=== PATIENT | female | born 1935 | race Caucasian/White ===

== ENCOUNTER 2017-09-11 17:04 | Inpatient (IN) | payer MEDICARE ==
[2017-09-11] MEDS ORDERED: Dextrose 5% in Water 1,000 ML IV PRN (20:41)
[2017-09-11] MEDS ORDERED: Ondansetron ODT 4 MG TAB PO PRN (20:41)
[2017-09-11] MEDS ORDERED: Bisacodyl 5 MG TAB PO PRN (20:41)
[2017-09-11] MEDS ORDERED: Acetaminophen 650 MG Suppository PR PRN (20:41)
[2017-09-11] MEDS ORDERED: Ondansetron PF 4 MG/2 ML Vial IVP PRN (20:41)
[2017-09-11] MEDS ORDERED: Guaifenesin DM 100-10/5 ML UDCUP PO PRN (20:41)
[2017-09-11] MEDS ORDERED: Acetaminophen 325 MG TAB PO PRN (20:41)
[2017-09-11] MEDS ORDERED: Dextrose 50% Abboject 50 ML SYRINGE SLOW IVP PRN (20:41)
[2017-09-11] MEDS: Docusate 100 MG CAP PO SCH (22:13)
[2017-09-11] MEDS: Famotidine 20 MG TAB PO SCH (22:13)
[2017-09-12 01:13] VITALS: BMI 28.1
[2017-09-12] MEDS: Levothyroxine Sodium 50 MCG TAB PO SCH (05:24)
[2017-09-12] MEDS: Furosemide 40 MG/4 ML VIAL SLOW IVP SCH ×2 (05:24→15:12)
[2017-09-12 06:10] LABS: Anion Gap 12 mmol/L (10-20); BUN (Urea Nitrogen) 75 mg/dL (9.8-20.1); Calc. Creatinine Clearance 19 mL/min (70-130); Calcium 9.5 mg/dL (7.8-10.44); Carbon Dioxide 26 mmol/L (23-31); Chloride 106 mmol/L (98-107); Estimated GFR-MDRD 16; Glucose 206 mg/dL (83-110); Potassium 4.8 mmol/L (3.5-5.1); Sodium 139 mmol/L (136-145)
[2017-09-12 06:30] LABS: #Eosinphils 0.1 thou/uL (0.0-0.7); #Lymphocytes 1.3 thou/uL (1.20-3.40); #Monocytes 0.5 thou/uL (0.11-0.59); #Neutrophils 3.1 thou/uL (1.40-6.50); %Basophils 0.5 % (0.0-1.0); %Eosinophils 2.2 % (0.0-10.0); %Lymphocytes 26.3 % (21.0-51.0); %Monocytes 10.4 % (0.0-10.0); %Neutrophils 60.6 % (42.0-75.0); Anisocytosis SLIGHT = 6-15 cells (100X) (0-5/hpf); Hemoglobin 8.3 g/dL (12.0-16.0); Hypochromia SLIGHT = 6-15 cells (100X) (0-5/hpf); MDiff Complete? YES; Mean Corpuscular HGB CONC 28.3 g/dL (32.0-36.0); Mean Corpuscular Hemoglobin 22.7 pg (27.0-31.0); Mean Corpuscular Volume 80.3 fl (81.0-99.0); Mean Platelet Volume 8.7 fL (7.4-10.4); Microcytosis SLIGHT = 6-15 cells (100X) (0-5/hpf); Platelet Count 232 thou/uL (130-400); RBC Distribution Width 18.6 % (11.5-14.5); Red Blood Cell (RBC) Count 3.66 mill/uL (4.20-5.40); White Blood Cell (WBC) Count 5.1 thou/uL (4.8-10.8)
--- NOTE | 2017-09-12 08:00 | HP ---
PRIMARY CARE PHYSICIAN: Maryam Hidalgo M.D. CHIEF COMPLAINT: Shortness of breath and weakness. HISTORY OF PRESENT ILLNESS: This is an 81-year-old white female with a known history of diabetes, hypertension and atrial fibrillation, but no known history of congestive heart failure. She reports that over the last 3 weeks, she has been having increasing swelling in her lower extremities. She has had this previously, but kind of come and gone and now it has been persistent since then and over the last 2 or 3 days, she has been getting a little more short of breath with activity and feeling a little weak, then this morning after she got up and started moving around, she had significant difficulty getting her clothes on due to worsening of her swelling and felt very short of breath and very weak. She managed to get to her car with her walker and her helped her into it. She was supposed to go get some lab work, but after she got into the care, she determined she could not continue like that and so they went to the emergency room in [place]. There, she was found to have CHF on chest x-ray as well as a very elevated brain natriuretic peptide and elevation in her creatinine. She was given some Lasix without much urine output and then transferred here. PAST MEDICAL HISTORY: 1. Diabetes mellitus type 2 on oral hypoglycemics only. 2. Hypertension. 3. Previous atrial fibrillation. 4. Hyperlipidemia. 5. Anemia of uncertain etiology. 6. Hypothyroidism. PAST SURGICAL HISTORY: 1. Right ankle surgery with plates. 2. Distal femur fracture with ORIF. 3. Bilateral cataract surgery. 4. Blepharitis surgery. 5. Left humeral fracture repair. 6. Skin cancer removal from her scalp. SOCIAL HISTORY: Patient has been for greater than 60 years, 2 children. 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 She never smoked. No alcohol or illicit drug use. FAMILY HISTORY: Father of a myocardial infarction at 84 and had asthma. Mother at 84 of Alzheimer's. She has 1 brother with rheumatoid arthritis. Sister with sleep apnea and asthma. Mom with an MT and coronary artery bypass grafting and with diabetes. ALLERGIES: No known drug allergies. CURRENT MEDICATIONS: 1. Aspirin 81 mg daily. 2. Atenolol 100 mg daily. 3. Amlodipine 5 mg daily. 4. Lisinopril 10 mg daily. 5. Chlorthalidone 25 mg daily. 6. Hydrochlorothiazide 12.5 mg daily. 7. Actos 45 mg daily. 8. Invokana 100 mg daily. 9. Pravastatin 20 mg at night. 10. Levothyroxine 50 mcg daily. 11. MiraLax as needed. 12. Vitamin D3 of 1000 units daily. REVIEW OF SYSTEMS: Constitutional: No fevers, no chills, just generalized weakness. Eyes: No double vision or blurred vision. ENT: No congestion, drainage or sore throat. Cardiovascular: No chest pain, no palpitations or racing heart. She has had the edema as above. Pulmonary: No coughing, dyspnea on exertion, but not at rest or with lying down. She was lying flat in the bed and breathing comfortably in the emergency room when I saw her. Gastrointestinal: No abdominal pain, no nausea or vomiting, no diarrhea or constipation. Genitourinary: No dysuria or hematuria. Musculoskeletal: No muscle aches, joint pains. Skin: She has some mild bruises that are improving after a fall 3 weeks ago. No other skin rashes or lesions. Neurologic: No numbness, tingling or focal weakness. PHYSICAL EXAMINATION: VITAL SIGNS: Blood pressure 112/45, pulse 49, respirations 16, temperature 96.1 , O2 sat 99% on room air. GENERAL: This is a well-developed, well-nourished elderly female in no apparent distress, on oxygen, lying flat in the bed. HEENT: Pupils equal, round, and reactive to light. Oropharynx clear without lesions, erythema or exudate. NECK: Supple, no lymphadenopathy, no thyroid nodules or enlargement. She does have some JVD. HEART: Irregularly irregular rhythm, bradycardic. No murmurs. LUNGS: Decent air movement throughout. No obvious crackles. ABDOMEN: Soft, nontender to palpation, normoactive bowel sounds, no hepatosplenomegaly or other masses. EXTREMITIES: No clubbing or cyanosis. She does have a 3+ to 4+ pitting edema in bilateral lower extremities going up into her thighs. SKIN: No rashes or other lesions besides some mild bruising that is healing on her right leg and left arm and a scabbed eschar on her left hand. NEUROLOGIC: Deep tendon reflexes 2+ in all extremities. Strength 5/5 in all extremities. No facial droop. No lateralizing signs. LABORATORY DATA: White blood cell count normal, hemoglobin 8.7 which is about consistent with her hemoglobin from last year. Platelet count normal. Coagulation profile grossly normal. Complete metabolic panel notable for BUN of 72, creatinine of 2.72 with previous creatinines in the 1.3 to 1.6 range. Glucose 183 and albumin is low at 3.1 and the remainder of the complete metabolic panel was normal. BNP is elevated at 939. Cardiac marker set negative x1. Hemoglobin A1c 7.2. TSH is 10.9. Urinalysis with a lot of protein, some glucose and 1+ bacteria and no white blood cells or leukocyte esterase. Chest x-ray: I did review the chest x-ray done in the emergency room along with the radiologist's report. There is evidence of cardiomegaly with bilateral interstitial markings consistent with decompensated CHF. There is also some pleural fluid in the right base concerning for pleural effusion versus pneumonia. X-ray of the left hand shows some soft tissue edema. No osseous abnormalities. Patient's rhythm strip in the emergency room showed atrial fibrillation with bradycardia, no significant ST changes noted. ASSESSMENT AND PLAN: 1. Acute congestive heart failure. We will admit patient and then try diuresis with Lasix as it difficult with her increased creatinine. We will also get an echocardiogram and continue her aspirin. We will hold her beta blockers for now as well as her amlodipine due to her edema and we will consult Dr. Evans, Cardiology in the morning. 2. Hypertension. We will try and diurese patient for control of her blood pressure, but we will have to hold her beta travis and amlodipine for now due to her bradycardia and decompensated congestive failure. 3. Diabetes mellitus type 2. We will give an insulin sliding scale at this time. We will hold her oral hypoglycemics, especially the Actos, which can exacerbate congestive heart failure. 4. Hypothyroidism. Resume patient's levothyroxine. 5. Gastrointestinal prophylaxis, put the patient on Pepcid twice a day. 6. Deep venous thrombosis prophylaxis, put patient on low dose Lovenox. 7. Acute on chronic renal failure. We will hold ALEXANDER inhibitor and will consult Dr. Harrison, Nephrology. 8. Code status. I did discuss the patient. She is a FULL CODE. Should she be incapacitated, her would be her medical decision maker, his name is Sree Orellana. [facility]
[2017-09-12] MEDS ORDERED: Albumin 25% 25 GM/100 ML BOT IVPB ONE (09:05)
[2017-09-12] MEDS: Enoxaparin Sodium 30 MG/0.3 ML SYRINGE SC SCH (09:17)
[2017-09-12] MEDS: Docusate 100 MG CAP PO SCH ×2 (09:17→22:08)
[2017-09-12] MEDS: Albumin 25% 25 GM/100 ML BOT IVPB SCH ×3 (09:18→22:16)
--- NOTE | 2017-09-12 10:41 | CON ---
DATE OF CONSULTATION: 09/12/2017 SERVICE: Renal Medicine. HISTORY OF PRESENT ILLNESS: Ms. Orellana is an 81-year-old white female who was admitted for shortness of breath. She was found to be in CHF. She was started on IV Lasix. Her breathing this morning is much improved. We are now being consulted for her acute kidney injury on top of her chronic renal f ailure. Patient is noted to be on diuretics. She has been making some urine output. REVIEW OF SYSTEMS: Positive for shortness of breath. No chest pain, no nausea, no vomiting. Decrea sed energy level. Appetite decreased. No abdominal pain. Positive for leg edema. No fever or chil ls, no joint pains, no new skin rash, no syncopal episode, no sore throat, no productive cough, no di plopia. MEDICATIONS: She is currently on aspirin 81 mg every day, Dulcolax 10 mg p.r.n., Colace 100 mg p.o. b.i.d., Lovenox 30 mg subcu every day, Pepcid 20 mg q.24 hours, Furosemide 40 mg IV q.12 hours, Humal og sliding scale, Synthroid 50 mcg every day, Zofran 4 mg IV q.4 hours, status post ceftriaxone. PAST MEDICAL HISTORY: Includes, 1. Hypothyroidism. 2. History of CHF. 3. Type 2 diabetes mellitus. 4. Chronic renal failure secondary to presumed diabetic nephropathy. 5. Status post atrial fibrillation. 6. Hypertension. 7. Chronic anemia. 8. Hyperlipidemia. PAST SURGICAL HISTORY: 1. Status post ORIF of distal femoral. 2. Status post right ankle surgery. 3. Status post bilateral cataract surgery. 4. Status post eye surgery - for blepharitis. 5. Status post excision of skin cancer from the scalp. SOCIAL HISTORY: Patient lives in [place], , 2 children. 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 No smoking, no alcohol intake, no IV drug abuse. Status post blood transfusion. Education, high school. FAMILY HISTORY: No family history of ESRD. ALLERGIES: None. TRAUMA: Status post right femoral fracture, right ankle fracture. IMMUNIZATIONS: Up to date. HOSPITALIZATIONS: Please see past medical history. PHYSICAL EXAMINATION: VITAL SIGNS: Blood pressure is 102/45, heart rate 50, respiratory 16, temperature 97.5, pulse ox 95% . GENERAL: Awake, alert, comfortable, obese, not in distress. SKIN: Adequate turgor. HEENT: She has slightly pale conjunctivae, anicteric sclerae. NECK: No neck mass, no carotid bruits, no JVD. CHEST: No deformities. LUNGS: Clear breath sounds, no wheezing, no crackles. HEART: Normal sinus rhythm. No murmur, no gallops or rubs. ABDOMEN: Globular, soft, nontender, no masses. EXTREMITIES: Positive for edema. NEUROLOGIC: Awake, oriented to 3 spheres. Moving all extremities. No tremors, no asterixis, no kirill aram. X-RAY FINDINGS: Chest x-ray of 09/11/2017 showed CHF. LABORATORY DATA: Of 09/12/2017, white count 5.1, hemoglobin 8.3. Sodium 139, potassium 4.8, chlorid e 106, carbon dioxide 26, BUN 75, creatinine 2.81, glucose 206, calcium is 9.5. Further review of her serum creatinine shows the following, on 09/11/2017, creatinine was 2.7 and on 05/02/2017, creatinine was 1.37. Urinalysis shows specific gravity of 1.020, protein greater than 300. She has 0-[address] ASSESSMENT AND PLAN: 1. Acute kidney injury - consider hemodynamically mediated renal dysfunction. Please note, this pat ient was taking an ALEXANDER inhibitor and diuretics. This may have aggravated the renal dysfunction. She is also in congestive heart failure, which also may have a superimposed worsening of her prerenal az otemia. For the moment, agree with current management and IV Lasix. Hold off her hydrochlorothiazid e, chlorthalidone, Invokana as well as the lisinopril. I would probably also start salt poor albumin 25 grams IV q.6 hours with this patient for 3 days. There is no indication for any dialytic interve ntion. 2. Chronic renal failure, most likely from diabetic nephropathy. Please note that her acute kidney injury is most likely hemodynamically mediated renal dysfunction. 3. Congestive heart failure. We will continue IV Lasix. As previously mentioned, salt poor albumin will be started. ADDENDUM: Anemia. If needed, we can consider starting Epogen.
[2017-09-12] MEDS: HumaLOG 300 UNITS/3 ML VIAL SC PRN ×2 (12:08→18:05)
--- NOTE | 2017-09-12 14:04 | PDOC.PN ---
- Subjective Encounter Start Date: 09/12/17 Encounter Start Time: 11:00 Patient is seen today, She has massive pedal edema, with Multiple Falls according to Family. - Objective Resuscitation Status: Resuscitation Status FULL:Full Resuscitation MAR Reviewed: Yes Vital Signs & Weight: Vital Signs (12 hours) Temp Pulse Resp BP Pulse Ox 09/12/17 08:00 97.5 F L 50 L 18 97/50 L 95 09/12/17 04:37 97.5 F L 50 L 16 102/45 L 95 Weight Weight 169 lb 8 oz I&O: 09/11/17 09/12/17 09/13/17 06:59 06:59 06:59 Intake Total 200 240 Output Total 200 Balance 0 240 Result Diagrams: 09/12/17 05:40 09/12/17 05:40 Additional Labs: Accuchecks 09/12/17 09/12/17 09/11/17 10:58 06:24 20:56 POC Glucose 254 H 208 H 174 H Radiology Reviewed by me: Yes Phys Exam - Physical Examination HEENT: PERRLA, moist MMs Neck: no nodes, no JVD Respiratory: wheezing present Cardiovascular: RRR, no significant murmur Gastrointestinal: soft, non-tender Musculoskeletal: edema present Neurological: non-focal, normal sensation Lymphatic: no nodes Dx/Plan (1) Acute diastolic CHF (congestive heart failure) Code(s): I50.31 - ACUTE DIASTOLIC (CONGESTIVE) HEART FAILURE Status: Acute Comment: Pt was on lasix at home, Worseing Renal fucntions, kev pedal edema,. will hold lasix, Cardiology consulted. Will cotninue with ,Hold ACEI, BB (2) Bradycardia Code(s): R00.1 - BRADYCARDIA, UNSPECIFIED Status: Acute Comment: Cardiology to Evalauted, Will hold BB. (3) Hypertension Code(s): I10 - ESSENTIAL (PRIMARY) HYPERTENSION Status: Acute Comment: Continue with Hydralazine prn (4) DM type 2 (diabetes mellitus, type 2) Status: Acute Comment: Well controlled. SSI. (5) Cardiorenal syndrome with renal failure Code(s): I13.10 - HYP HRT & CHR KDNY DIS W/O HRT FAIL, W STG 1-4/UNSP CHR KDNY; N19 - UNSPECIFIED KIDNEY FAILURE Status: Acute Comment: nephrology is consulted. Will follow recommedations. (6) Morbid obesity Code(s): E66.01 - MORBID (SEVERE) OBESITY DUE TO EXCESS CALORIES Status: Acute (7) Multiple falls Code(s): R29.6 - REPEATED FALLS Status: Acute Comment: PT/OT, evalaution, likely from bradycardia. - Plan cont current plan of care, plan discussed w/ family, PT/OT, hospice social worker, respiratory therapy, incentive spirometry, out of bed/ambulate, DVT proph w/ lovenox * . - Discharge Day Encounter end time: 11:35 Review of Systems - Review of Systems Eyes: negative: Pain, Vision Change, Conjunctivae Inflammation, Eyelid Inflammation, Redness, Other Respiratory: Cough, Shortness of Breath, SOB with Excertion, Wheezing Cardiovascular: orthopnea, paroxysmal nocturnal dyspnea, edema. negative: chest pain, palpitations, light headedness, other Gastrointestinal: negative: Nausea, Vomiting, Abdominal Pain, Diarrhea, Constipation, Melena, Hematochezia, Other Musculoskeletal: negative: Neck Pain, Shoulder Pain, Arm Pain, Back Pain, Hand Pain, Leg Pain, Foot Pain, Other Skin: Bruising. negative: Rash, Lesions, Haseeb, Other - Medications/Allergies Allergies/Adverse Reactions: Allergies Allergy/AdvReac Type Severity Reaction Status Date / Time No Known Drug Allergies Allergy Verified 09/12/17 07:30 Medications: Current Medications Acetaminophen (Tylenol) 650 mg PO Q4H PRN PRN Reason: Headache/Fever or Pain Acetaminophen (Tylenol) 650 mg MO Q4H PRN PRN Reason: Headache/Fever or Pain Albumin Human (Albumin 25%) 25 gm IVPB Q6H [facility] Stop: 09/15/17 10:01 Last Admin: 09/12/17 09:18 Dose: 25 gm Aspirin (Aspirin Chewable) 81 mg PO DAILY [facility] Last Admin: 09/12/17 09:17 Dose: 81 mg Bisacodyl (Dulcolax) 10 mg PO DAILYPRN PRN PRN Reason: Constipation Dextrose/Water (Dextrose 50%) 25 gm SLOW IVP PRN PRN PRN Reason: Hypoglycemia Docusate Sodium (Colace) 100 mg PO BID [facility] Last Admin: 09/12/17 09:17 Dose: 100 mg Enoxaparin Sodium (Lovenox) 30 mg SC 0900 [facility] Last Admin: 09/12/17 09:17 Dose: 30 mg Famotidine (Pepcid) 20 mg PO Q24HR [facility] Last Admin: 09/11/17 22:13 Dose: 20 mg Furosemide (Lasix) 40 mg SLOW IVP 0600,1400 [facility] Last Admin: 09/12/17 05:24 Dose: 40 mg Glucagon (Glucagon) 1 mg IM PRN PRN PRN Reason: Hypoglycemia Guaifenesin/Dextromethorphan (Robitussin Dm) 15 ml PO Q4H PRN PRN Reason: Cough Dextrose/Water (D5w) 1,000 mls @ 0 mls/hr IV .Q0M PRN; As Directed PRN Reason: Hypoglycemia Insulin Human Lispro (Humalog) 0 units SC .MILD SLIDING SCALE PRN PRN Reason: Mild Correctional Scale Last Admin: 09/12/17 12:08 Dose: 4 unit Insulin Human Lispro (Humalog) 0 units SC .BEDTIME SLIDING SC PRN PRN Reason: Bedtime Correctional Scale Levothyroxine Sodium (Synthroid) 50 mcg PO 0600 [facility] Last Admin: 09/12/17 05:24 Dose: 50 mcg Ondansetron HCl (Zofran Odt) 4 mg PO Q6H PRN PRN Reason: Nausea/Vomiting Ondansetron HCl (Zofran) 4 mg IVP Q6H PRN PRN Reason: Nausea/Vomiting Sodium Chloride (Flush - Normal Saline) 10 ml IVF Q12HR GORDY Sodium Chloride (Flush - Normal Saline) 10 ml IVF PRN PRN PRN Reason: Saline Flush
--- NOTE | 2017-09-12 15:43 | CON ---
DATE OF CONSULTATION: 09/12/2017 REASON FOR CONSULTATION: Shortness of breath and lower extremity edema. HISTORY OF PRESENT ILLNESS: Ms. Orellana is an 81-year-old woman with no previous cardiac history. We recently presented with shortness of breath. She states that it has slowly occurred over the last s everal weeks. No chest pain or pressure noted. She has developed lower extremity edema in addition to PND. She presented to emergency room with elevated creatinine and decrease in her hemoglobin. Ag ain, no chest pain or pressure noted. No diaphoresis, nausea or vomiting present. PAST MEDICAL HISTORY: Chronic kidney disease, atrial fibrillation, anemia, hypertension, hyperlipide edvin and hypothyroidism. PAST SURGICAL HISTORY: Right ankle surgery, cataract surgery. SOCIAL HISTORY: No current tobacco or alcohol use. She has two children. She is currently . REVIEW OF SYSTEMS: Ten point review of systems is reviewed as above, otherwise negative. PHYSICAL EXAMINATION: GENERAL: Patient is a pleasant female who is in no acute distress. The patient appears her stated a ge. VITAL SIGNS: Blood pressure 102/45, pulse 50, temperature 97.5. NEUROLOGIC: The patient is alert and oriented times 3 with no focal neurologic deficits. HEENT: Sclerae without icterus. Mouth has moist mucous membranes with normal pallor. NECK: No JVD. Carotid upstroke brisk. No bruits bilaterally. LUNGS: Clear to auscultation with unlabored respirations. BACK: No scoliosis or kyphosis. CARDIAC: Regular rate and rhythm with normal S1 and S2. No S3 or S4 noted. No significant rubs, mu rmurs, thrills, or gallops noted throughout the precordium. PMI is not displaced. There is no carrol ternal heave. ABDOMEN: Soft, nontender, nondistended. No peritoneal signs present. No hepatosplenomegaly. No ab normal striae. EXTREMITIES: 2+ femoral and 2+ dorsalis pedis pulses. No cyanosis, clubbing, or edema. SKIN: No gross abnormalities. PERTINENT LABORATORY DATA AND IMAGING DATA: 1. Hemoglobin 8.3, creatinine 2.81, BNP of 939, albumin 3.1. 2. Telemetry monitoring showed short run of supraventricular tachycardia. 3. EKG not currently in chart. IMPRESSION: 1. Congestive heart failure of unknown etiology. 2. Chronic kidney disease. 3. Anemia. RECOMMENDATIONS: Ms. Orellana's symptoms can certainly be due to diastolic versus systolic dysfunction . Echo is currently pending. I would treat with Lasix. She is also receiving albumin due to an alb umin of 3.1 and likely proteinuria. We will reassess in a.m. If LVEF is normal, would continue curr ent course. If LVEF is decreased, may consider noninvasive stress study to her kidney issue versus a ngiography.
[2017-09-12] MEDS: Famotidine 20 MG TAB PO SCH (22:08)
[2017-09-13] MEDS: Furosemide 40 MG/4 ML VIAL SLOW IVP SCH ×2 (02:37→14:30)
[2017-09-13] MEDS: Albumin 25% 25 GM/100 ML BOT IVPB SCH ×4 (04:59→21:51)
[2017-09-13] MEDS: Levothyroxine Sodium 50 MCG TAB PO SCH (05:04)
[2017-09-13 05:22] LABS: #Basophils 0.1 thou/uL (0.0-0.2); #Eosinphils 0.2 thou/uL (0.0-0.7); #Lymphocytes 1.5 thou/uL (1.20-3.40); #Monocytes 0.7 thou/uL (0.11-0.59); #Neutrophils 3.5 thou/uL (1.40-6.50); %Basophils 1.3 % (0.0-1.0); %Eosinophils 2.9 % (0.0-10.0); %Lymphocytes 25.2 % (21.0-51.0); %Monocytes 12.3 % (0.0-10.0); %Neutrophils 58.4 % (42.0-75.0); Hemoglobin 7.6 g/dL (12.0-16.0); Mean Corpuscular HGB CONC 28.6 g/dL (32.0-36.0); Mean Corpuscular Hemoglobin 23.1 pg (27.0-31.0); Mean Corpuscular Volume 80.8 fl (81.0-99.0); Mean Platelet Volume 8.6 fL (7.4-10.4); Platelet Count 213 thou/uL (130-400); RBC Distribution Width 18.4 % (11.5-14.5); Red Blood Cell (RBC) Count 3.29 mill/uL (4.20-5.40); White Blood Cell (WBC) Count 5.9 thou/uL (4.8-10.8)
[2017-09-13 05:26] LABS: Anion Gap 9 mmol/L (10-20); BUN (Urea Nitrogen) 78 mg/dL (9.8-20.1); Calc. Creatinine Clearance 18 mL/min (70-130); Calcium 9.6 mg/dL (7.8-10.44); Carbon Dioxide 29 mmol/L (23-31); Chloride 106 mmol/L (98-107); Estimated GFR-MDRD 15; Glucose 149 mg/dL (83-110); Potassium 4.9 mmol/L (3.5-5.1); Sodium 139 mmol/L (136-145)
--- NOTE | 2017-09-13 08:49 | PRG ---
DATE OF SERVICE: 09/13/2017 SUBJECTIVE: Ms. Orellana is an 81-year-old white female who was admitted for shortness of breath. It was felt that she may have CHF. She has been started on Lasix. In addition, we started her on salt poor albumin. However, renal function continues to remain unimproved. We will be reviewing a urinal ysis today to rule out acute tubular necrosis with this patient. Currently, her breathing is much im proved. Cardiology is also evaluating this patient. A cardiac echo is pending. OBJECTIVE: VITAL SIGNS: Blood pressure is 108/50, heart rate 51, respiratory rate 12, temperature 97.5, pulse o x 97%. GENERAL: Noted to be awake, supine, comfortable, not in overt distress. SKIN: Adequate turgor. HEENT: Slightly pale conjunctivae, anicteric sclerae. NECK: No neck mass, no carotid bruits, no JVD. CHEST: No deformities. LUNGS: Decreased breath sounds. HEART: Normal sinus rhythm. No murmur, no gallops, no rubs. ABDOMEN: Globular, soft, nontender, no masses. EXTREMITIES: Positive for edema. MEDICATIONS: 09/13/2017 - Reviewed. LABORATORY: 09/13/2017 - White count 5.9, hemoglobin 7.6. Sodium 139, potassium 4.9, chloride 106, carbon dioxide 29, BUN 78, creatinine 2.01, glucose is 149, calcium 9.6. ASSESSMENT AND PLAN: 1. Acute kidney injury over her chronic renal failure - consideration for a superimposed hemodynamic ally mediated renal dysfunction. Continuing gentle diuresis. In addition, she is receiving salt poo r albumin. My bias is to decrease her Lasix from 40 IV q.12 to 20 mg IV q.12h. Awaiting cardiac echo . Cardiology is following. 2. Shortness of breath - presumptive congestive heart failure - on IV diuretics. 3. Anemia. Start Epogen and iron supplementation. We will be rechecking a base met and CBC in a.m.
[2017-09-13] MEDS: Docusate 100 MG CAP PO SCH ×2 (09:28→21:36)
[2017-09-13] MEDS: Enoxaparin Sodium 30 MG/0.3 ML SYRINGE SC SCH (09:31)
[2017-09-13] MEDS: Epoetin (ESRD) 20,000 UNITS/ML SC SCH (14:36)
--- NOTE | 2017-09-13 14:41 | PDOC.PN ---
- Subjective Encounter Start Date: 09/13/17 Encounter Start Time: 14:39 Ms. Orellana says she is breathing a bit better. She denies chest pain . - Objective Resuscitation Status: Resuscitation Status FULL:Full Resuscitation MAR Reviewed: Yes Vital Signs & Weight: Vital Signs (12 hours) Temp Pulse Resp BP BP Pulse Ox 09/13/17 09:46 104/61 09/13/17 07:40 97.5 F L 51 L 12 108/50 L 97 09/13/17 04:00 97.5 F L 50 L 18 100/47 L 99 Weight Weight 174 lb 8 oz I&O: 09/12/17 09/13/17 09/14/17 06:59 06:59 06:59 Intake Total 200 1400 Output Total 200 375 Balance 0 1025 Result Diagrams: 09/13/17 04:44 09/13/17 04:44 Additional Labs: Accuchecks 09/13/17 09/13/17 09/12/17 10:50 06:24 20:40 POC Glucose 145 H 151 H 146 H 09/12/17 15:58 POC Glucose 176 H Phys Exam - Physical Examination HEENT: PERRLA Respiratory: no wheezing, no rales, no rhonchi, clear to auscultation bilateral Cardiovascular: no significant murmur, no rub, irregular heart rate is slow, and irregular Gastrointestinal: soft, non-tender, no distention, positive bowel sounds Musculoskeletal: edema present 2+ pitting edema Dx/Plan (1) Acute diastolic CHF (congestive heart failure) Code(s): I50.31 - ACUTE DIASTOLIC (CONGESTIVE) HEART FAILURE Status: Acute Comment: Pt was on lasix at home, Worseing Renal fucntions, kev pedal edema,. will hold lasix, Cardiology consulted. Will cotninue with ,Hold ACEI, BB (2) Acute kidney injury superimposed on chronic kidney disease Code(s): N17.9 - ACUTE KIDNEY FAILURE, UNSPECIFIED; N18.9 - CHRONIC KIDNEY DISEASE, UNSPECIFIED Status: Acute (3) Bradycardia Code(s): R00.1 - BRADYCARDIA, UNSPECIFIED Status: Acute Comment: Cardiology to Evalauted, Will hold BB. (4) DM type 2 (diabetes mellitus, type 2) Status: Acute Comment: Well controlled. SSI. (5) Hypertension Code(s): I10 - ESSENTIAL (PRIMARY) HYPERTENSION Status: Acute Comment: Continue with Hydralazine prn (6) Morbid obesity Code(s): E66.01 - MORBID (SEVERE) OBESITY DUE TO EXCESS CALORIES Status: Acute (7) Atrial fibrillation Code(s): I48.91 - UNSPECIFIED ATRIAL FIBRILLATION Status: Acute Qualifiers: Atrial fibrillation type: permanent Qualified Code(s): I48.2 - Chronic atrial fibrillation - Plan * Acute on chronic diastolic heart failure- She has been a bit refractory to Lasix- continue Albumin as well. * Acute renal failure- likely as a result of Diureses- Nephrology managing * DM- blood glucose is stable * HTN- blood pressure is low normal * Permanent AFIB- she has a slow ventricular response, but asymptomatic- will defer to Cardiology
[2017-09-13 15:17] LABS: Bilirubin Negative (Negative); Blood, Urine Large (Negative); Clarity TURBID (Clear); Glucose, Urine (Dipstick) Negative (Negative); Leukocyte Moderate (Negative); Nitrite Negative (Negative); Protein, Urine (Dipstick) 300 mg/dL (Neg-Trace); Specific Gravity, Urine 1.015 (1.002-1.036); Urobilinogen 0.2 mg/dL (0.2-1.0)
[2017-09-13 15:18] LABS: Bacteria/HPF None Seen HPF (None Seen)
[2017-09-13 15:28] LABS: Pathc Cast-AUWi Flag 29.25 (0-2.49); Yeast-AUWi Flag 418.8 (0-25.0)
[2017-09-13 15:38] LABS: Hyaline Casts/LPF 0-3 HYALINE CAST LPF (0-3 Hyaline); Other Casts/LPF None Seen LPF (0-3 Hyaline); RBC/HPF GREATER THAN 50-TNTC HPF (0-3); Transitional Epithelial 0-3 HPF (0-3)
[2017-09-13 15:39] LABS: Yeast-All Forms None Seen HPF (None Seen)
[2017-09-13] MEDS: Ferrous Sulfate 325 MG TAB PO SCH (16:27)
--- NOTE | 2017-09-13 16:42 | PRG ---
DATE OF SERVICE: 09/13/2017 SUBJECTIVE: Ms. Orellana feels better today. She has less shortness of breath. Recent echo did sugge st LVEF normal. She did have a grade I diastolic dysfunction. There is mild LVH present. OBJECTIVE: VITAL SIGNS: Blood pressure 118/58, pulse 53, temperature 97.3. LUNGS: Mild crackles noted on right versus left. CARDIAC: Irregular rate and rhythm. ABDOMEN: Soft, nontender, nondistended. EXTREMITIES: No edema. PERTINENT LABORATORY DATA: Hemoglobin 10.6, white blood cell count 5.9, platelet count 213, creatini ne has worsened and gone from 2.8 to 3.0. IMPRESSION: 1. Shortness of breath. 2. Chronic atrial fibrillation. RECOMMENDATIONS: At this point, we will hold anticoagulation therapy due to persistent anemia. Her anemia may be due to chronic kidney disease. Creatinine has worsened. Her LVEF does appear normal. Her LV wall thickness and diastolic dysfunction is a concern contributory to shortness of breath. C hest x-ray performed on 09/11/2017 did show right basilar opacity consistent with edema versus pneumo pili. Otherwise, we would continue current treatment as prescribed.
[2017-09-13] MEDS: Famotidine 20 MG TAB PO SCH (21:36)
[2017-09-14] MEDS: Albumin 25% 25 GM/100 ML BOT IVPB SCH ×2 (04:14→10:33)
[2017-09-14 05:20] LABS: #Basophils 0.1 thou/uL (0.0-0.2); #Eosinphils 0.1 thou/uL (0.0-0.7); #Lymphocytes 1.2 thou/uL (1.20-3.40); #Monocytes 0.6 thou/uL (0.11-0.59); %Basophils 0.9 % (0.0-1.0); %Eosinophils 1.5 % (0.0-10.0); %Lymphocytes 20.1 % (21.0-51.0); %Monocytes 9.7 % (0.0-10.0); %Neutrophils 67.8 % (42.0-75.0); Hemoglobin 7.6 g/dL (12.0-16.0); Mean Corpuscular HGB CONC 28.4 g/dL (32.0-36.0); Mean Corpuscular Hemoglobin 22.9 pg (27.0-31.0); Mean Corpuscular Volume 80.9 fl (81.0-99.0); Mean Platelet Volume 8.7 fL (7.4-10.4); Platelet Count 186 thou/uL (130-400); RBC Distribution Width 18.5 % (11.5-14.5); White Blood Cell (WBC) Count 5.9 thou/uL (4.8-10.8)
[2017-09-14 05:26] LABS: Anion Gap 15 mmol/L (10-20); BUN (Urea Nitrogen) 83 mg/dL (9.8-20.1); Calc. Creatinine Clearance 18 mL/min (70-130); Calcium 9.6 mg/dL (7.8-10.44); Carbon Dioxide 24 mmol/L (23-31); Chloride 104 mmol/L (98-107); Estimated GFR-MDRD 14; Glucose 148 mg/dL (83-110); Potassium 4.9 mmol/L (3.5-5.1); Sodium 138 mmol/L (136-145)
[2017-09-14] MEDS: Furosemide 40 MG/4 ML VIAL SLOW IVP SCH ×2 (06:28→13:23)
[2017-09-14] MEDS: Levothyroxine Sodium 50 MCG TAB PO SCH (06:30)
[2017-09-14] MEDS: Docusate 100 MG CAP PO SCH ×2 (09:08→20:26)
[2017-09-14] MEDS: Ferrous Sulfate 325 MG TAB PO SCH ×2 (09:08→16:41)
[2017-09-14] MEDS: Enoxaparin Sodium 30 MG/0.3 ML SYRINGE SC SCH (09:10)
--- NOTE | 2017-09-14 09:30 | PRG ---
DATE OF SERVICE: 09/14/2017. SUBJECTIVE: Ms. Orellana is an 81-year-old white female who was initially admitted for shortness of br eath. Working diagnosis of CHF was made. We are seeing this patient for her acute kidney injury. R enal function seems to be stabilizing. She voices no new complaints today. The patient denies any c omplaints of chest pain or shortness of breath. She continues to be on gentle diuresis at 20 mg IV q.12h. She has received salt poor albumin in the l ast few days. PHYSICAL EXAMINATION: VITAL SIGNS: Blood pressure is 120/54, heart rate 52, respiratory rate 16, temperature 97.2, pulse o x 96%. GENERAL: Sleepy, but arousable, comfortable. SKIN: Adequate turgor. HEENT: Slightly pale conjunctivae, anicteric sclerae. NECK: No neck mass, no carotid bruits, no JVD. CHEST: No deformities. LUNGS: Decreased breath sounds. HEART: Normal sinus rhythm. No murmur, no gallops, no rubs. ABDOMEN: Globular, soft, nontender, no masses. EXTREMITIES: Positive for edema. MEDICATIONS: 09/14/2017 - Reviewed. LABORATORY: 09/14/2017 - White count 5.9, hemoglobin 7.6. Sodium 138, potassium 4.9, chloride 104, carbon dioxide 24, BUN 83, creatinine 3.09. 09/13/2017 - BUN 78, creatinine 3.01. ASSESSMENT AND PLAN: 1. Acute kidney injury on top of her chronic renal failure - superimposed hemodynamically mediated r enal dysfunction. There seems to be some stabilization of the renal function. Lasix has been adjust ed downwards to 20 mg IV q.12h. On p.r.n. salt poor albumin. 2. Anemia - the patient has been started on Epogen and iron supplementation. 3. Congestive heart failure - clinically much improved. Consider further increasing Lasix depending on her how her congestive heart failure will be in the next few days. We will recheck another base met and CBC in a.m.
[2017-09-14 10:20] LABS: #Eosinphils 0.1 thou/uL (0.0-0.7); #Lymphocytes 1.2 thou/uL (1.20-3.40); #Monocytes 0.6 thou/uL (0.11-0.59); #Neutrophils 3.8 thou/uL (1.40-6.50); %Basophils 0.6 % (0.0-1.0); %Eosinophils 1.1 % (0.0-10.0); %Lymphocytes 21.2 % (21.0-51.0); %Monocytes 10.4 % (0.0-10.0); %Neutrophils 66.6 % (42.0-75.0); Hemoglobin 7.5 g/dL (12.0-16.0); Mean Corpuscular HGB CONC 28.3 g/dL (32.0-36.0); Mean Corpuscular Hemoglobin 22.8 pg (27.0-31.0); Mean Corpuscular Volume 80.5 fl (81.0-99.0); Mean Platelet Volume 8.5 fL (7.4-10.4); Platelet Count 179 thou/uL (130-400); RBC Distribution Width 18.7 % (11.5-14.5); Red Blood Cell (RBC) Count 3.27 mill/uL (4.20-5.40); White Blood Cell (WBC) Count 5.7 thou/uL (4.8-10.8)
--- NOTE | 2017-09-14 14:12 | PDOC.PN ---
- Subjective Encounter Start Date: 09/14/17 Encounter Start Time: 14:10 Ms. Orellana was seen today in follow-up. She does not have any complaints, and denies dyspnea, or chest pain. - Objective Resuscitation Status: Resuscitation Status FULL:Full Resuscitation MAR Reviewed: Yes Vital Signs & Weight: Vital Signs (12 hours) Temp Pulse Resp BP Pulse Ox 09/14/17 11:23 97.4 F L 56 L 16 123/56 L 99 09/14/17 08:00 97.4 F L 61 17 106/62 98 09/14/17 05:00 97.2 F L 52 L 16 120/54 L 96 Weight Weight 178 lb 11.2 oz I&O: 09/13/17 09/14/17 09/15/17 06:59 06:59 06:59 Intake Total 1400 320 Output Total 375 160 Balance 1025 160 Result Diagrams: 09/14/17 09:51 09/14/17 04:46 Additional Labs: Accuchecks 09/14/17 09/14/17 09/13/17 11:22 05:38 20:57 POC Glucose 154 H 147 H 158 H 09/13/17 16:28 POC Glucose 176 H Phys Exam - Physical Examination HEENT: PERRLA Respiratory: no wheezing, clear to auscultation bilateral + coarse breath sounds Cardiovascular: RRR, no significant murmur Gastrointestinal: soft, non-tender, no distention, positive bowel sounds Musculoskeletal: edema present 2+ pitting edema Dx/Plan (1) Acute diastolic CHF (congestive heart failure) Code(s): I50.31 - ACUTE DIASTOLIC (CONGESTIVE) HEART FAILURE Status: Acute Comment: Pt was on lasix at home, Worseing Renal fucntions, kev pedal edema,. will hold lasix, Cardiology consulted. Will cotninue with ,Hold ACEI, BB (2) Acute kidney injury superimposed on chronic kidney disease Code(s): N17.9 - ACUTE KIDNEY FAILURE, UNSPECIFIED; N18.9 - CHRONIC KIDNEY DISEASE, UNSPECIFIED Status: Acute (3) Bradycardia Code(s): R00.1 - BRADYCARDIA, UNSPECIFIED Status: Acute Comment: Cardiology to Evalauted, Will hold BB. (4) DM type 2 (diabetes mellitus, type 2) Status: Acute Comment: Well controlled. SSI. (5) Hypertension Code(s): I10 - ESSENTIAL (PRIMARY) HYPERTENSION Status: Acute Comment: Continue with Hydralazine prn (6) Morbid obesity Code(s): E66.01 - MORBID (SEVERE) OBESITY DUE TO EXCESS CALORIES Status: Acute (7) Atrial fibrillation Code(s): I48.91 - UNSPECIFIED ATRIAL FIBRILLATION Status: Acute Qualifiers: Atrial fibrillation type: permanent Qualified Code(s): I48.2 - Chronic atrial fibrillation - Plan * Acute on chronic diastolic heart failure- it is unclear if she is in negative balance- will continue to monitor * Acute on chronic renal failure- her renal function has leveled off * DM- blood glucose is stable. * AFIB- permanent- her heart rate is stable, and she is off anticoagulation due to anemia * Anemia- her HGB is at 7.4, she is asymptomatic- continue Epogen, and iron supplement. If it falls below 7, then will transfuse * Continue PT/OT
[2017-09-14] MEDS: Famotidine 20 MG TAB PO SCH (20:27)
[2017-09-15] MEDS: Furosemide 40 MG/4 ML VIAL SLOW IVP SCH ×2 (05:05→15:13)
[2017-09-15] MEDS: Levothyroxine Sodium 50 MCG TAB PO SCH (05:06)
[2017-09-15 05:39] LABS: Anion Gap 12 mmol/L (10-20); BUN (Urea Nitrogen) 87 mg/dL (9.8-20.1); Calc. Creatinine Clearance 17 mL/min (70-130); Calcium 9.4 mg/dL (7.8-10.44); Carbon Dioxide 26 mmol/L (23-31); Chloride 104 mmol/L (98-107); Estimated GFR-MDRD 14; Glucose 146 mg/dL (83-110); Potassium 4.6 mmol/L (3.5-5.1); Sodium 137 mmol/L (136-145)
[2017-09-15] MEDS: Ferrous Sulfate 325 MG TAB PO SCH ×2 (08:44→16:31)
[2017-09-15] MEDS: Enoxaparin Sodium 30 MG/0.3 ML SYRINGE SC SCH (08:44)
[2017-09-15] MEDS: Docusate 100 MG CAP PO SCH ×2 (08:44→21:53)
[2017-09-15] MEDS ORDERED: Calcium Carbonate 500 MG ChewTAB PO PRN (10:09)
--- NOTE | 2017-09-15 10:11 | PDOC.PN ---
- Subjective Encounter Start Date: 09/15/17 Encounter Start Time: 10:10 Ms. Orellana was seen today in follow-up. She says she just ate, and then shortly after she feels nauseated, and had a discomfort in her chest. She is still feeling " sick", and her heart rate is noted to be in the 130-140's. - Objective Resuscitation Status: Resuscitation Status FULL:Full Resuscitation MAR Reviewed: Yes Vital Signs & Weight: Vital Signs (12 hours) Temp Pulse Resp BP Pulse Ox 09/15/17 08:39 97.5 F L 53 L 18 130/59 L 99 09/15/17 08:00 97.5 F L 53 L 18 09/15/17 04:00 97.3 F L 50 L 18 129/60 100 09/14/17 23:20 97.6 F 51 L 17 127/56 L 100 Weight Weight 176 lb I&O: 09/14/17 09/15/17 09/16/17 06:59 06:59 06:59 Intake Total 320 652 Output Total 160 550 Balance 160 102 Result Diagrams: 09/14/17 09:51 09/15/17 05:17 Additional Labs: Accuchecks 09/15/17 09/14/17 09/14/17 05:48 20:20 17:39 POC Glucose 149 H 183 H 159 H 09/14/17 11:22 POC Glucose 154 H Phys Exam - Physical Examination HEENT: PERRLA + rhonchi bilaterally,no rales Cardiovascular: no significant murmur, no rub, irregular Tachycardic Gastrointestinal: soft, non-tender, no distention, positive bowel sounds Musculoskeletal: edema present trace pedal edema Dx/Plan (1) Acute diastolic CHF (congestive heart failure) Code(s): I50.31 - ACUTE DIASTOLIC (CONGESTIVE) HEART FAILURE Status: Acute Comment: Pt was on lasix at home, Worseing Renal fucntions, kev pedal edema,. will hold lasix, Cardiology consulted. Will cotninue with ,Hold ACEI, BB (2) Acute kidney injury superimposed on chronic kidney disease Code(s): N17.9 - ACUTE KIDNEY FAILURE, UNSPECIFIED; N18.9 - CHRONIC KIDNEY DISEASE, UNSPECIFIED Status: Acute (3) Bradycardia Code(s): R00.1 - BRADYCARDIA, UNSPECIFIED Status: Acute Comment: Cardiology to Evalauted, Will hold BB. (4) DM type 2 (diabetes mellitus, type 2) Status: Acute Comment: Well controlled. SSI. (5) Hypertension Code(s): I10 - ESSENTIAL (PRIMARY) HYPERTENSION Status: Acute Comment: Continue with Hydralazine prn (6) Morbid obesity Code(s): E66.01 - MORBID (SEVERE) OBESITY DUE TO EXCESS CALORIES Status: Acute (7) Atrial fibrillation Code(s): I48.91 - UNSPECIFIED ATRIAL FIBRILLATION Status: Acute Qualifiers: Atrial fibrillation type: permanent Qualified Code(s): I48.2 - Chronic atrial fibrillation - Plan * AFIB with RVR- patient developed rapid AFIB shortly after eating. She responded briefly to carotid massage, but her heart rate went back up immediately after removing my hand- her blood pressure was 119/60 at the time- will give a dose of Metoprolol IV * Acute on chronic diastolic heart failure- improved continue as per Cardiology * Acute on chronic renal failure- - her creatinine has leveled off- continue as per Nephrology. * DM- blood glucose is stable * HTN- blood pressure is stable
[2017-09-15] MEDS ORDERED: Metoprolol Tartrate 5 MG/5 ML VIAL IVP SCH (10:15)
[2017-09-15] MEDS: Diltiazem 125 MG in Sodium Chloride 0.9% 100 ML IVPB SCH (12:27)
--- NOTE | 2017-09-15 13:02 | PRG ---
DATE OF SERVICE: 09/15/2017 RENAL MEDICINE SUBJECTIVE: Ms. Orellana is an 81-year-old white female who was seen by the Renal Service for acute ki dney injury. She was also found to be in mild CHF. This morning, the patient developed rapid atrial fibrillation. Medications are being given. She fee ls little better this morning. The patient denies any chest pain. She does have a chronic mild shortness of breath. PHYSICAL EXAMINATION: VITAL SIGNS: Blood pressure 126/61 with a heart rate of 136, temperature 97.5, pulse ox 99%. GENERAL: Awake, supine, comfortable, not in distress. SKIN: Adequate turgor. HEENT: Slightly pale conjunctivae, anicteric sclerae. NECK: No neck mass, no carotid bruits, no JVD. CHEST: No deformities. LUNGS: Decreased breath sounds. HEART: Tachycardic, no murmur, gallops, or rubs. ABDOMEN: Globular, soft, nontender. EXTREMITIES: Positive for edema. MEDICATIONS: Of 09/15/2017 was reviewed. LABORATORY DATA: Of 09/14/2017, white count 5.7, hemoglobin 7.5. 09/16/2007, sodium 137, potassium 4.6, chloride 104, carbon dioxide 26, BUN 87, creatinine 3.18, glucose 146, and calcium 9.4. ASSESSMENT AND PLAN: 1. Acute kidney injury on top of chronic renal failure - superimposed hemodynamically mediated renal dysfunction. Continue supportive care. There is no indication for any dialytic intervention. The patient is currently at stage IV chronic renal failure. 2. Anemia. The patient is currently on weekly Epogen and iron supplementation. 3. Shortness of breath, multifactorial etiology. The patient may have a diastolic dysfunction. Her EF showed 55%-60%, but the cardiac echo showed also mild concentric left ventricular hypertrophy. I f renal function will further worsen, we may need to further decrease the furosemide to once a day do sing. Currently, she is on 20 mg IV q.12 hours. I will be rechecking another base met and CBC in a.m.
--- NOTE | 2017-09-15 14:24 | PDOC.CTH ---
<Leny Herrmann - Last Filed: 09/15/17 14:43> Cardiology Progress Note - Subjective The Pt seen and examined. No overnight events. No cardiac complaints. - Objective Vital Signs Temp Pulse Resp BP Pulse Ox 09/15/17 12:30 97.7 F 119 H 17 119/69 99 09/15/17 10:27 136 H 126/61 09/15/17 10:24 133 H 127/74 09/15/17 10:20 136 H 123/73 09/15/17 08:39 97.5 F L 53 L 18 130/59 L 99 09/15/17 08:00 97.5 F L 53 L 18 09/15/17 04:00 97.3 F L 50 L 18 129/60 100 Weight 176 lb 09/14/17 09/15/17 09/16/17 06:59 06:59 06:59 Intake Total 320 652 Output Total 160 550 Balance 160 102 - Physical Examination General/Neuro: alert & oriented x3 Neck: no JVD present Lungs: CTA (diminished at bases) Heart: other: (irregular) Abdomen: soft Extremities: other: - Telemetry Telemetry Rhythm: AFib 100s - Labs Result Diagrams: 09/14/17 09:51 09/15/17 05:17 - Assessment/Plan 1. Acute on Chronic diastolic HF - stable with with Lasix 20mg IV BID; Holding ALEXANDER due to CKD, BBlocker due to hypotensive and bradycardia. 2. Chronic Afib with RVR - Converted back to Afib around 0830 on 09/15/17. Started Diltiazem 5mg/h. On ASA 81mg and Lovenox, but Not on OAC due to [place]. Possible resume Atenolol. 3. HTN - stable with current medication; possible reume Atenolol for HTN and Afib. 4. OLIVIA on CKD stage 4 - managed by pediatric assistant 5. Anemia - stable with Epogen and Iron supplement; check CBC tomorrow AM. 6. Hyperlipidemia - Start Pravastatin 20mg daily 7. Hypothyroidism - managed by PCP 8. DM type 2 - managed by PCP 9. Obese - MAR reviewed Review of Systems - Review of Systems Constitutional: reports: no symptoms reported EENTM: reports: no symptoms reported Respiratory: reports: no symptoms reported ABD/GI: reports: no symptoms reported : reports: no symptoms reported Musculoskeletal: reports: no symptoms reported <Talita Evans - Last Filed: 09/16/17 00:17> Cardiology Progress Note - Objective Vital Signs Temp Pulse Resp BP Pulse Ox 09/15/17 19:01 97.5 F L 85 17 109/64 95 09/15/17 16:00 97.6 F 101 H 17 120/62 93 L 09/15/17 12:30 97.7 F 119 H 17 119/69 99 Weight 176 lb 09/14/17 09/15/17 09/16/17 06:59 06:59 06:59 Intake Total 320 652 740 Output Total 160 550 875 Balance 160 102 -135 - Labs Result Diagrams: 09/14/17 09:51 09/15/17 05:17 - Assessment/Plan Pt. seen and eval. by me. I agree with the A/P by the NUTRITIONAL ASSISTANT. We discussed the pt. and plan.
[2017-09-15] MEDS: HumaLOG 300 UNITS/3 ML VIAL SC PRN ×2 (16:33→22:19)
[2017-09-15] MEDS: Simvastatin 5 MG TAB PO SCH (21:53)
[2017-09-15] MEDS: Famotidine 20 MG TAB PO SCH (21:55)
[2017-09-16 05:16] LABS: Anion Gap 10 mmol/L (10-20); BUN (Urea Nitrogen) 89 mg/dL (9.8-20.1); Calc. Creatinine Clearance 20 mL/min (70-130); Calcium 9.9 mg/dL (7.8-10.44); Carbon Dioxide 28 mmol/L (23-31); Chloride 104 mmol/L (98-107); Estimated GFR-MDRD 16; Glucose 139 mg/dL (83-110); Potassium 4.3 mmol/L (3.5-5.1); Sodium 138 mmol/L (136-145)
[2017-09-16] MEDS: Furosemide 40 MG/4 ML VIAL SLOW IVP SCH ×2 (05:17→14:05)
[2017-09-16] MEDS: Levothyroxine Sodium 50 MCG TAB PO SCH (05:19)
[2017-09-16 05:31] LABS: Hemoglobin 8.4 g/dL (12.0-16.0); MDiff Complete? YES; Mean Corpuscular HGB CONC 29.3 g/dL (32.0-36.0); Mean Corpuscular Hemoglobin 23.1 pg (27.0-31.0); Mean Platelet Volume 8.6 fL (7.4-10.4); Platelet Count 179 thou/uL (130-400); RBC Distribution Width 18.9 % (11.5-14.5); Red Blood Cell (RBC) Count 3.63 mill/uL (4.20-5.40); White Blood Cell (WBC) Count 4.6 thou/uL (4.8-10.8)
[2017-09-16 05:32] LABS: Anisocytosis SLIGHT = 6-15 cells (100X) (0-5/hpf); Bite Cells SLIGHT = 2-5 cells (100X) (0-1/hpf); Eosinophils 1 % (0-10); Hypochromia MODERATE=16-30 cells (100X) (0-5/hpf); Lymphocytes 28 % (21-51); Microcytosis SLIGHT = 6-15 cells (100X) (0-5/hpf); Monocytes 8 % (0-10); Neutrophil 62 % (42-75); Nucleated RBC 1 % (0); PLT Morphology Comment Appears Adequate; Reactive Lymphocytes 1 % (0-10)
[2017-09-16] MEDS: Diltiazem 125 MG in Sodium Chloride 0.9% 100 ML IVPB SCH (07:06)
[2017-09-16] MEDS: Ferrous Sulfate 325 MG TAB PO SCH ×2 (07:56→17:37)
[2017-09-16] MEDS: Docusate 100 MG CAP PO SCH ×2 (09:02→20:59)
[2017-09-16] MEDS: Enoxaparin Sodium 30 MG/0.3 ML SYRINGE SC SCH (09:02)
--- NOTE | 2017-09-16 10:56 | PDOC.PN ---
- Subjective Encounter Start Date: 09/16/17 Encounter Start Time: 10:54 Ms. Orellana is having a better morning today. she denies any nausea, or vomiting , and she denies feeling short of breath. - Objective Resuscitation Status: Resuscitation Status FULL:Full Resuscitation MAR Reviewed: Yes Vital Signs & Weight: Vital Signs (12 hours) Temp Pulse Resp BP Pulse Ox 09/16/17 08:00 97.6 F 96 18 09/16/17 07:52 97.6 F 96 18 125/69 95 09/16/17 04:00 97.8 F 94 15 113/57 L 95 09/16/17 00:00 89 108/59 L Weight Weight 177 lb 12.8 oz I&O: 09/15/17 09/16/17 09/17/17 06:59 06:59 06:59 Intake Total 652 740 Output Total 550 875 Balance 102 -135 Result Diagrams: 09/16/17 04:53 09/16/17 04:53 Additional Labs: Accuchecks 09/16/17 09/15/17 09/15/17 06:24 21:14 16:14 POC Glucose 135 H 209 H 177 H 09/15/17 11:36 POC Glucose 144 H Phys Exam - Physical Examination HEENT: PERRLA Respiratory: no rales, no rhonchi, wheezing present + scattered wheezing on both sides Cardiovascular: no significant murmur, no rub, irregular Gastrointestinal: soft, non-tender, positive bowel sounds Musculoskeletal: pulses present, edema present 2+ pitting edema bilaterally Dx/Plan (1) Acute diastolic CHF (congestive heart failure) Code(s): I50.31 - ACUTE DIASTOLIC (CONGESTIVE) HEART FAILURE Status: Acute Comment: Pt was on lasix at home, Worseing Renal fucntions, kev pedal edema,. will hold lasix, Cardiology consulted. Will cotninue with ,Hold ACEI, BB (2) Acute kidney injury superimposed on chronic kidney disease Code(s): N17.9 - ACUTE KIDNEY FAILURE, UNSPECIFIED; N18.9 - CHRONIC KIDNEY DISEASE, UNSPECIFIED Status: Acute (3) Bradycardia Code(s): R00.1 - BRADYCARDIA, UNSPECIFIED Status: Acute Comment: Cardiology to Evalauted, Will hold BB. (4) DM type 2 (diabetes mellitus, type 2) Status: Acute Comment: Well controlled. SSI. (5) Hypertension Code(s): I10 - ESSENTIAL (PRIMARY) HYPERTENSION Status: Acute Comment: Continue with Hydralazine prn (6) Morbid obesity Code(s): E66.01 - MORBID (SEVERE) OBESITY DUE TO EXCESS CALORIES Status: Acute (7) Atrial fibrillation Code(s): I48.91 - UNSPECIFIED ATRIAL FIBRILLATION Status: Acute Qualifiers: Atrial fibrillation type: permanent Qualified Code(s): I48.2 - Chronic atrial fibrillation - Plan * AFIB with RVR- she is now on Cardizem drip at 5mg/hr, and heart rate is stable * Hypothyroidism- she is on levothyroxine- since she had an episode of AFIB with RVR will check TFT's in the AM * Acute on chronic diastolic heart failure- improving symptomatically * Acute on chronic kidney disease stage 4- renal function is slowing improving as well * HTN- blood pressure is stable * DM- blood glucose is stable.
--- NOTE | 2017-09-16 12:53 | PRG ---
DATE OF SERVICE: 09/16/2017 SUBJECTIVE: Ms. Orellana is an 81-year-old white female who was seen for her acute kidney injury. The feeling this was hemodynamically mediated renal dysfunction. Creatinine is slowly improving over ti me. She was also noted to be having shortness of breath at that time and the shortness of breath is much improved. This morning, she is feeling better. She denies any new complaints. OBJECTIVE: VITAL SIGNS: Blood pressure 125/69, heart rate 96, respiratory rate 18, temperature 97.6, pulse ox 9 5%. GENERAL: Noted to be awake, alert, comfortable, not in distress. SKIN: Adequate turgor. HEENT: Slightly pale conjunctivae, anicteric sclerae. NECK: No neck mass, no carotid bruits, no JVD. CHEST: No deformities. LUNGS: Decreased breath sounds. HEART: Normal sinus rhythm. No murmur, no gallops, no rubs. ABDOMEN: Globular, soft, nontender, no masses. EXTREMITIES: Trace edema, no deformities. MEDICATIONS: 09/16/2017 was reviewed. LABORATORY DATA: Laboratories of 09/16/2017, sodium 138, potassium 4.3, chloride 104, carbon dioxide 28, BUN 89, creatinine 2.76, glucose 139, calcium 9.9, white count 8.6, hemoglobin 8.4. ASSESSMENT AND PLAN: 1. Anemia. I think currently on weekly Epogen and iron supplementation. Slowly improving. 2. Acute kidney injury/chronic renal failure, a superimposed prerenal azotemia, slowly improving wit h adjustment of her diuretics. There is no indication for any dialytic intervention. For the moment , agree with current management. If needed, change IV Lasix to p.o. Lasix. 3. Shortness of breath, clinically much improved - most likely a diastolic dysfunction.
--- NOTE | 2017-09-16 17:26 | PDOC.CTH ---
<Leny Herrmann - Last Filed: 09/16/17 17:24> Cardiology Progress Note - Subjective The pt seen and examined. No overnight events. No cardiac complaints. She stated she is breathing stable with RA. - Objective Vital Signs Temp Pulse Pulse Resp BP BP Pulse Ox 09/16/17 15:55 97.5 F L 96 17 136/63 99 09/16/17 11:59 97.6 F 97 16 111/53 L 93 L 09/16/17 10:45 97 120/56 L 09/16/17 08:00 97.6 F 96 18 09/16/17 07:52 97.6 F 96 18 125/69 95 Weight 177 lb 12.8 oz 09/15/17 09/16/17 09/17/17 06:59 06:59 06:59 Intake Total 652 740 Output Total 550 875 Balance 102 -135 - Physical Examination General/Neuro: alert & oriented x3 Neck: no JVD present Lungs: CTA (diminished at bases) Heart: other: (irregular) Abdomen: soft Extremities: other: (3+ pitting BLE edemas) - Telemetry Telemetry Rhythm: AFib 90-100s - Labs Result Diagrams: 09/16/17 04:53 09/16/17 04:53 - Assessment/Plan 1. Acute on Chronic diastolic HF - stable with with Lasix 20mg IV BID; Holding ALEXANDER due to CKD, BBlocker due to hypotensive and bradycardia. 2. Chronic Afib with RVR - Converted back to Afib around 0830 on 09/15/17. Started Diltiazem 5mg/h. On ASA 81mg and Lovenox, but Not on OAC due to [place]. Possible resume Atenolol. 3. HTN - stable with current medication; possible reume Atenolol for HTN and Afib. 4. OLIVIA on CKD stage 4 - managed by trestle mainternance laborer 5. Anemia - slightly improving with Epogen and Iron supplement; 6. Hyperlipidemia - Start Pravastatin 20mg daily 7. Hypothyroidism - managed by PCP 8. DM type 2 - managed by PCP 9. Obese - MAR reviewed Review of Systems - Review of Systems Constitutional: reports: no symptoms reported EENTM: reports: no symptoms reported Respiratory: reports: no symptoms reported Cardiac (ROS): reports: no symptoms reported ABD/GI: reports: no symptoms reported Musculoskeletal: reports: no symptoms reported Skin: reports: no symptoms reported <Talita Evans - Last Filed: 09/16/17 19:34> Cardiology Progress Note - Objective Vital Signs Temp Pulse Pulse Resp BP BP Pulse Ox 09/16/17 15:55 97.5 F L 96 17 136/63 99 09/16/17 11:59 97.6 F 97 16 111/53 L 93 L 09/16/17 10:45 97 120/56 L 09/16/17 08:00 97.6 F 96 18 09/16/17 07:52 97.6 F 96 18 125/69 95 Weight 177 lb 12.8 oz 09/15/17 09/16/17 09/17/17 06:59 06:59 06:59 Intake Total 652 740 660 Output Total 613 206 8564 Balance 102 -135 -500 - Labs Result Diagrams: 09/16/17 04:53 09/16/17 04:53 - Assessment/Plan Pt. seen and eval. by me. I agree with the A/P by the KENNEL OPERATOR. We discussed the pt. and plan.
[2017-09-16] MEDS: HumaLOG 300 UNITS/3 ML VIAL SC PRN ×2 (17:41→21:31)
[2017-09-16] MEDS: Simvastatin 5 MG TAB PO SCH (20:58)
[2017-09-16] MEDS: Famotidine 20 MG TAB PO SCH (20:59)
[2017-09-17 05:35] LABS: Free T4 (Free Thyroxine) 0.93 ng/dL (0.70-1.48); Thyroid Stimulating Hormone 5.3957 uIU/mL (0.35-4.94)
[2017-09-17] MEDS: Furosemide 40 MG/4 ML VIAL SLOW IVP SCH ×2 (05:49→14:13)
[2017-09-17] MEDS: Levothyroxine Sodium 50 MCG TAB PO SCH (05:49)
[2017-09-17] MEDS: Diltiazem 125 MG in Sodium Chloride 0.9% 100 ML IVPB SCH (05:50)
[2017-09-17] MEDS ORDERED: Clopidogrel Bisulfate 75 MG TAB ONE (07:43)
--- NOTE | 2017-09-17 08:53 | PRG ---
DATE OF SERVICE: 09/17/2017 SUBJECTIVE: Ms. Orellana is an 81-year-old white female who was seen for an acute kidney injury that w as hemodynamically mediated renal dysfunction. She is currently on a diuretic regimen. Renal functi on is slowly improving. No other complaints today. No chest pain or shortness of breath. PHYSICAL EXAMINATION: VITAL SIGNS: Blood pressure is 134/60, heart rate 97, respiratory rate 18, temperature 98, pulse ox 94%. GENERAL: Awake, supine, comfortable, not in distress. SKIN: Adequate turgor. HEENT: She has slightly pale conjunctivae, anicteric sclerae. NECK: No neck mass, no carotid bruits, no JVD. CHEST: No deformities. LUNGS: Clear breath sounds, no wheezing, no crackles. HEART: Normal sinus rhythm. No murmur, no gallops, no rubs. ABDOMEN: Globular, soft, nontender. No masses. EXTREMITIES: Positive for edema. MEDICATIONS: 09/17/2017 - Reviewed. LABORATORY: 09/16/2017 - White count 4.6, hemoglobin 8.4, sodium 138, potassium 4.3, chloride 104, c arbon dioxide 28, BUN 89, creatinine 2.76, calcium 9.9. ASSESSMENT AND PLAN: 1. Acute kidney injury on top of her chronic renal failure - superimposed hemodynamically mediated r enal dysfunction, slowly improving. On decreased dose of Lasix. Continue current management. No in dication for any dialytic intervention. 2. Anemia - stable. Currently on weekly Epogen. 3. Congestive heart failure - currently on IV Lasix. Continue current management. I agree with current management. Recheck base met and CBC in a.m.
[2017-09-17] MEDS: Docusate 100 MG CAP PO SCH ×2 (09:07→20:22)
[2017-09-17] MEDS: Ferrous Sulfate 325 MG TAB PO SCH ×2 (09:07→17:15)
[2017-09-17] MEDS: Enoxaparin Sodium 30 MG/0.3 ML SYRINGE SC SCH (09:08)
--- NOTE | 2017-09-17 11:40 | PRG ---
DATE OF SERVICE: 09/14/2017 SUBJECTIVE: Ms. Orellana today is somnolent. She has no current complaints. PHYSICAL EXAMINATION: VITAL SIGNS: Blood pressure 130/56, pulse 56, temperature is 97.4. LUNGS: Clear to auscultation. HEART: Irregular rate and rhythm. ABDOMEN: Soft, nontender, nondistended. EXTREMITIES: No edema. PERTINENT LABORATORY DATA: Hemoglobin 7.5, white blood cell count 5.7. IMPRESSION: Shortness of breath. RECOMMENDATIONS: Ms. Orellana's shortness of breath likely multifactorial. She does have diastolic dy sfunction, most likely in addition to anemia and chronic kidney disease. We would treat the anemia a nd chronic kidney disease. Blood pressure appears stable. Otherwise, from my standpoint, I have no further recommendations. Dr. Evans will be cotton factor this weekend. If any further questions, please co nsult with Dr. Evans. Otherwise, we will follow up as an outpatient.
[2017-09-17] MEDS: HumaLOG 300 UNITS/3 ML VIAL SC PRN (12:38)
--- NOTE | 2017-09-17 18:56 | PRG ---
DATE OF SERVICE: 09/17/2017 SUBJECTIVE: Ms. Orellana developed atrial fibrillation over the weekend. Rate appears to be fairly we ll controlled. She is still on 5 mg IV per hour of diltiazem. OBJECTIVE: VITAL SIGNS: Blood pressure 120/66, pulse 87, temperature 97.9. LUNGS: Clear to auscultation. HEART: Irregularly irregular. ABDOMEN: Soft, nontender, nondistended. EXTREMITIES: No edema. IMPRESSION: New-onset atrial fibrillation. RECOMMENDATIONS: Ms. Orellana states she has had atrial fibrillation in the past. This was addressed by Dr. Eldon Latham. She has refused anticoagulation therapy. She understands the risk of stroke. I also discussed the risks and benefits of anticoagulation therapy. Again, she is adamant about e use of anticoagulation therapy. We will continue aspirin. We will add beta travis therapy to her current regime and titrate down IV Cardizem.
[2017-09-17] MEDS: Famotidine 20 MG TAB PO SCH (20:23)
[2017-09-17] MEDS: Simvastatin 5 MG TAB PO SCH (20:23)
[2017-09-17] MEDS: Metoprolol Tartrate 25 MG TAB PO SCH (20:24)
--- NOTE | 2017-09-17 21:50 | PDOC.PN ---
- Subjective Encounter Start Date: 09/17/17 Encounter Start Time: 10:30 Patient seen and examined. No new complaints. No overnight events - Objective Resuscitation Status: Resuscitation Status FULL:Full Resuscitation MAR Reviewed: Yes Vital Signs & Weight: Vital Signs (12 hours) Temp Pulse Resp BP Pulse Ox 09/17/17 16:00 97.9 F 87 16 120/66 93 L 09/17/17 11:00 97.8 F 104 H 16 135/64 Weight Weight 177 lb 9.6 oz I&O: 09/16/17 09/17/17 09/18/17 06:59 06:59 06:59 Intake Total 740 961 840 Output Total 875 2460 850 Balance -135 -1499 -10 Result Diagrams: 09/18/17 04:47 09/18/17 04:47 Additional Labs: Accuchecks 09/17/17 09/17/17 09/17/17 21:09 15:40 11:02 POC Glucose 152 H 193 H 181 H 09/17/17 05:48 POC Glucose 159 H EKG Reviewed by me: Yes (Tele Afib) Phys Exam - Physical Examination Constitutional: NAD Respiratory: no wheezing, no rhonchi Scat rales at bases Cardiovascular: no rub, irregular Gastrointestinal: soft, non-tender Musculoskeletal: edema present (4+) Neurological: moves all 4 limbs Dx/Plan - Plan DVT proph w/lovenox IMPRESSION: 1. Acute on Chronic diastolic HF 2. Afib with RVR - on Cardizem drip 3. OLIVIA on CKD stage 4 4. DM type 2/ HTN 5. Other issues per previous notes PLAN: * Cont Cardizem drip * Cardio/Nephro following * Diuretics per Nephro * AM labs * Cont sliding scale * Cont current meds as below * Cont to monitor Review of Systems - Review of Systems Constitutional: negative: fever, chills, sweats, weakness, malaise, other Gastrointestinal: negative: Nausea, Vomiting, Abdominal Pain, Diarrhea, Constipation, Melena, Hematochezia, Other - Medications/Allergies Allergies/Adverse Reactions: Allergies Allergy/AdvReac Type Severity Reaction Status Date / Time No Known Drug Allergies Allergy Verified 09/12/17 07:30 Medications: Current Medications Acetaminophen (Tylenol) 650 mg PO Q4H PRN PRN Reason: Headache/Fever or Pain Acetaminophen (Tylenol) 650 mg [place] Q4H PRN PRN Reason: Headache/Fever or Pain Aspirin (Aspirin Chewable) 81 mg PO DAILY [facility] Last Admin: 09/17/17 09:07 Dose: 81 mg Bisacodyl (Dulcolax) 10 mg PO DAILYPRN PRN PRN Reason: Constipation Last Admin: 09/13/17 16:28 Dose: 10 mg Calcium Carbonate (Tums) 1,000 mg PO DAILYPRN PRN PRN Reason: Heartburn or Indigestion Last Admin: 09/15/17 10:18 Dose: 1,000 mg Dextrose/Water (Dextrose 50%) 25 gm SLOW IVP PRN PRN PRN Reason: Hypoglycemia Docusate Sodium (Colace) 100 mg PO BID [facility] [place] Last Admin: 09/17/17 20:22 Dose: 100 mg Enoxaparin Sodium (Lovenox) 30 mg SC 0900 [facility] [place] Last Admin: 09/17/17 09:08 Dose: 30 mg Epoetin Zurdo (Procrit) 7,500 units SC Q7D [facility] [place] Last Admin: 09/13/17 14:36 Dose: 7,500 units Famotidine (Pepcid) 20 mg PO Q24HR [facility] Last Admin: 09/17/17 20:23 Dose: 20 mg Ferrous Sulfate (Feosol) 325 mg PO BID-[facility] Last Admin: 09/17/17 17:15 Dose: 325 mg Furosemide (Lasix) 20 mg SLOW IVP 0600,1400 [facility] [place] Last Admin: 09/17/17 14:13 Dose: 20 mg Glucagon (Glucagon) 1 mg IM PRN PRN PRN Reason: Hypoglycemia Guaifenesin/Dextromethorphan (Robitussin Dm) 15 ml PO Q4H PRN PRN Reason: Cough Dextrose/Water (D5w) 1,000 mls @ 0 mls/hr IV .Q0M PRN; As Directed PRN Reason: Hypoglycemia Diltiazem HCl 125 mg/ Sodium (Chloride) 125 mls @ 5 mls/hr IVPB INF GORDY; 5 MG/ HR PRN Reason: Protocol Last Admin: 09/17/17 05:50 Dose: 125 mls Insulin Human Lispro (Humalog) 0 units SC .MILD SLIDING SCALE PRN PRN Reason: Mild Correctional Scale Last Admin: 09/17/17 12:38 Dose: 2 unit Insulin Human Lispro (Humalog) 0 units SC .BEDTIME SLIDING SC PRN PRN Reason: Bedtime Correctional Scale Last Admin: 09/16/17 21:31 Dose: 2 unit Levothyroxine Sodium (Synthroid) 50 mcg PO 0600 [facility] [place] Last Admin: 09/17/17 05:49 Dose: 50 mcg Metoprolol Tartrate (Lopressor) 25 mg PO BID [facility] [place] Last Admin: 09/17/17 20:24 Dose: 25 mg Ondansetron HCl (Zofran Odt) 4 mg PO Q6H PRN PRN Reason: Nausea/Vomiting Ondansetron HCl (Zofran) 4 mg IVP Q6H PRN PRN Reason: Nausea/Vomiting Last Admin: 09/13/17 21:31 Dose: 4 mg Simvastatin (Zocor) 10 mg PO HS [facility] [place] Last Admin: 09/17/17 20:23 Dose: 10 mg Sodium Chloride (Flush - Normal Saline) 10 ml IVF Q12HR [facility] [place] Last Admin: 09/17/17 20:24 Dose: Not Given Sodium Chloride (Flush - Normal Saline) 10 ml IVF PRN PRN PRN Reason: Saline Flush Last Admin: 09/17/17 05:49 Dose: 10 ml
[2017-09-18 05:12] LABS: #Basophils 0.1 thou/uL (0.0-0.2); #Eosinphils 0.2 thou/uL (0.0-0.7); #Lymphocytes 1.6 thou/uL (1.20-3.40); #Monocytes 0.7 thou/uL (0.11-0.59); %Basophils 1.2 % (0.0-1.0); %Eosinophils 3.5 % (0.0-10.0); %Lymphocytes 29.1 % (21.0-51.0); %Monocytes 11.9 % (0.0-10.0); %Neutrophils 54.3 % (42.0-75.0); Hemoglobin 8.5 g/dL (12.0-16.0); Mean Corpuscular Hemoglobin 23.6 pg (27.0-31.0); Mean Corpuscular Volume 78.6 fl (81.0-99.0); Mean Platelet Volume 8.9 fL (7.4-10.4); Platelet Count 183 thou/uL (130-400); RBC Distribution Width 19.5 % (11.5-14.5); Red Blood Cell (RBC) Count 3.59 mill/uL (4.20-5.40); White Blood Cell (WBC) Count 5.6 thou/uL (4.8-10.8)
[2017-09-18 05:19] LABS: Anion Gap 12 mmol/L (10-20); BUN (Urea Nitrogen) 76 mg/dL (9.8-20.1); Calc. Creatinine Clearance 29 mL/min (70-130); Calcium 9.9 mg/dL (7.8-10.44); Carbon Dioxide 30 mmol/L (23-31); Chloride 104 mmol/L (98-107); Estimated GFR-MDRD 25; Glucose 142 mg/dL (83-110); Magnesium 2.5 mg/dL (1.6-2.6); Potassium 3.8 mmol/L (3.5-5.1); Sodium 142 mmol/L (136-145)
[2017-09-18] MEDS: Furosemide 40 MG/4 ML VIAL SLOW IVP SCH ×2 (06:07→14:45)
[2017-09-18] MEDS: Levothyroxine Sodium 50 MCG TAB PO SCH (06:07)
[2017-09-18] MEDS: Diltiazem 125 MG in Sodium Chloride 0.9% 100 ML IVPB SCH (06:11)
[2017-09-18] MEDS: Polyethylene Glycol 3350 17 GM Packet PO SCH (08:24)
[2017-09-18] MEDS: Enoxaparin Sodium 30 MG/0.3 ML SYRINGE SC SCH (08:24)
[2017-09-18] MEDS: Metoprolol Tartrate 25 MG TAB PO SCH ×2 (08:24→21:11)
[2017-09-18] MEDS: Ferrous Sulfate 325 MG TAB PO SCH ×2 (08:24→17:02)
[2017-09-18] MEDS ORDERED: Senokot S 8.6-50 MG TAB PO SCH (09:00)
[2017-09-18] MEDS ORDERED: Diltiazem 125 MG in Sodium Chloride 0.9% 100 ML IVPB SCH (12:00)
[2017-09-18] MEDS: HumaLOG 300 UNITS/3 ML VIAL SC PRN ×2 (12:19→17:43)
--- NOTE | 2017-09-18 14:59 | PRG ---
DATE OF SERVICE: 09/18/2017 SUBJECTIVE: Ms. Orellana continues to be in atrial fibrillation. She is rate controlled, but is on IV Cardizem. She has no current complaints. Overall, she states she feels better. OBJECTIVE: VITAL SIGNS: Blood pressure 120/67, pulse 73, and temperature 97.9. LUNGS: Clear to auscultation. CARDIAC: Irregularly irregular. ABDOMEN: Soft, nontender, nondistended. EXTREMITIES: No edema. PERTINENT LABORATORY DATA: Hemoglobin 8.5. IMPRESSION: 1. Paroxysmal atrial fibrillation. 2. Diastolic dysfunction. RECOMMENDATIONS: Ms. Orellana does have a history of paroxysmal atrial fibrillation in the past. She has been adamant against use of anticoagulation therapy. May not be such a good choice given continu ed anemia. At this point, I would recommend continued rate control. She is currently on aspirin 81 q.a.m. We will increase to 325 q.a.m. Cardizem 180 q.a.m. was started this morning. We will decrea se IV Cardizem to 2.5 mg IV per hour. We will need to increase to 240 in a.m. if she continues to be on IV. Again, we will not proceed with anticoagulation therapy given patient's wishes.
--- NOTE | 2017-09-18 16:17 | PDOC.PN ---
- Subjective Encounter Start Date: 09/18/17 Encounter Start Time: 14:30 Patient seen and examined. No new complaints. No overnight events - Objective Resuscitation Status: Resuscitation Status FULL:Full Resuscitation MAR Reviewed: Yes Vital Signs & Weight: Vital Signs (12 hours) Temp Pulse Pulse Pulse Resp BP BP 09/18/17 12:15 97.9 F 73 18 09/18/17 09:35 84 93 151/64 H 130/60 09/18/17 07:35 97.9 F 106 H 16 09/18/17 07:32 97.9 F 106 H 16 BP Pulse Ox 09/18/17 12:15 123/67 95 09/18/17 09:35 09/18/17 07:35 97 09/18/17 07:32 132/63 97 Weight Weight 165 lb 12.8 oz I&O: 09/17/17 09/18/17 09/19/17 06:59 06:59 06:59 Intake Total 961 1920 Output Total 2460 1975 Balance -1499 -55 Result Diagrams: 09/18/17 04:47 09/18/17 04:47 Additional Labs: Accuchecks 09/18/17 09/18/17 09/17/17 12:11 06:07 21:09 POC Glucose 240 H 143 H 152 H EKG Reviewed by me: Yes (Tele Afib) Phys Exam - Physical Examination Constitutional: NAD Respiratory: no wheezing, no rhonchi Scat rales at bases Cardiovascular: no rub, irregular Gastrointestinal: soft, non-tender, positive bowel sounds Musculoskeletal: edema present Neurological: moves all 4 limbs Dx/Plan - Plan PT/OT, respiratory therapy, DVT proph w/lovenox IMPRESSION: 1. Acute on Chronic diastolic HF - improving 2. Afib with RVR - on Cardizem drip and oral 3. OLIVIA on CKD stage 4 - improving 4. DM 2/ HTN 5. Other issues per previous notes PLAN: * Cont to taper Cardizem drip * Cardio/Nephro following * Diuretics per Nephro * AM labs * Cont sliding scale * Cont current meds as below * Cont to monitor * DC planning - Patient declines SNF * BMP in AM Review of Systems - Review of Systems Respiratory: negative: Cough, Dry, Shortness of Breath, Hemoptysis, SOB with Excertion, Pleuritic Pain, Sputum, Wheezing Cardiovascular: negative: chest pain, palpitations, orthopnea, paroxysmal nocturnal dyspnea, edema, light headedness, other - Medications/Allergies Allergies/Adverse Reactions: Allergies Allergy/AdvReac Type Severity Reaction Status Date / Time No Known Drug Allergies Allergy Verified 09/12/17 07:30 Medications: Current Medications Acetaminophen (Tylenol) 650 mg PO Q4H PRN PRN Reason: Headache/Fever or Pain Acetaminophen (Tylenol) 650 mg [place] Q4H PRN PRN Reason: Headache/Fever or Pain Aspirin (Ecotrin) 325 mg PO DAILY [facility] Bisacodyl (Dulcolax) 10 mg PO DAILYPRN PRN PRN Reason: Constipation Last Admin: 09/13/17 16:28 Dose: 10 mg Calcium Carbonate (Tums) 1,000 mg PO DAILYPRN PRN PRN Reason: Heartburn or Indigestion Last Admin: 09/15/17 10:18 Dose: 1,000 mg Dextrose/Water (Dextrose 50%) 25 gm SLOW IVP PRN PRN PRN Reason: Hypoglycemia Diltiazem HCl (Cardizem Cd) 180 mg PO DAILY [facility] Last Admin: 09/18/17 08:24 Dose: 180 mg Enoxaparin Sodium (Lovenox) 30 mg SC 0900 [facility] Last Admin: 09/18/17 08:24 Dose: 30 mg Epoetin Zurdo (Procrit) 7,500 units SC Q7D [facility] Last Admin: 09/13/17 14:36 Dose: 7,500 units Famotidine (Pepcid) 20 mg PO Q24HR [facility] Last Admin: 09/17/17 20:23 Dose: 20 mg Ferrous Sulfate (Feosol) 325 mg PO BID[facility] Last Admin: 09/18/17 08:24 Dose: 325 mg Furosemide (Lasix) 20 mg SLOW IVP 0600,1400 [facility] Last Admin: 09/18/17 14:45 Dose: 20 mg Glucagon (Glucagon) 1 mg IM PRN PRN PRN Reason: Hypoglycemia Guaifenesin/Dextromethorphan (Robitussin Dm) 15 ml PO Q4H PRN PRN Reason: Cough Dextrose/Water (D5w) 1,000 mls @ 0 mls/hr IV .Q0M PRN; As Directed PRN Reason: Hypoglycemia Diltiazem HCl 125 mg/ Sodium (Chloride) 125 mls @ 2.5 mls/hr IVPB INF GORDY PRN Reason: Protocol Insulin Human Lispro (Humalog) 0 units SC .MILD SLIDING SCALE PRN PRN Reason: Mild Correctional Scale Last Admin: 09/18/17 12:19 Dose: 3 unit Insulin Human Lispro (Humalog) 0 units SC .BEDTIME SLIDING SC PRN PRN Reason: Bedtime Correctional Scale Last Admin: 09/16/17 21:31 Dose: 2 unit Levothyroxine Sodium (Synthroid) 50 mcg PO 0600 [facility] Last Admin: 09/18/17 06:07 Dose: 50 mcg Metoprolol Tartrate (Lopressor) 25 mg PO BID [facility] Last Admin: 09/18/17 08:24 Dose: 25 mg Ondansetron HCl (Zofran Odt) 4 mg PO Q6H PRN PRN Reason: Nausea/Vomiting Ondansetron HCl (Zofran) 4 mg IVP Q6H PRN PRN Reason: Nausea/Vomiting Last Admin: 09/13/17 21:31 Dose: 4 mg Polyethylene Glycol (Miralax) 17 gm PO DAILY [facility] Last Admin: 09/18/17 08:24 Dose: 17 gm Senna/Docusate Sodium (Senokot S) 1 tab PO BID [facility] Last Admin: 09/18/17 08:24 Dose: 1 tab Simvastatin (Zocor) 10 mg PO HS [facility] Last Admin: 09/17/17 20:23 Dose: 10 mg Sodium Chloride (Flush - Normal Saline) 10 ml IVF Q12HR [facility] Last Admin: 09/18/17 08:25 Dose: Not Given Sodium Chloride (Flush - Normal Saline) 10 ml IVF PRN PRN PRN Reason: Saline Flush Last Admin: 09/17/17 05:49 Dose: 10 ml
[2017-09-18] MEDS: Famotidine 20 MG TAB PO SCH (21:10)
[2017-09-18] MEDS: Senokot S 8.6-50 MG TAB PO SCH (21:11)
[2017-09-18] MEDS: Simvastatin 5 MG TAB PO SCH (21:11)
[2017-09-19] MEDS: Furosemide 40 MG/4 ML VIAL SLOW IVP SCH ×2 (05:16→13:35)
[2017-09-19] MEDS: Levothyroxine Sodium 50 MCG TAB PO SCH (05:16)
[2017-09-19 06:23] LABS: Anion Gap 14 mmol/L (10-20); BUN (Urea Nitrogen) 69 mg/dL (9.8-20.1); Calc. Creatinine Clearance 30 mL/min (70-130); Calcium 10.3 mg/dL (7.8-10.44); Carbon Dioxide 31 mmol/L (23-31); Chloride 103 mmol/L (98-107); Estimated GFR-MDRD 28; Glucose 134 mg/dL (83-110); Potassium 3.7 mmol/L (3.5-5.1); Sodium 144 mmol/L (136-145)
[2017-09-19] MEDS: Ferrous Sulfate 325 MG TAB PO SCH ×2 (08:25→17:23)
[2017-09-19] MEDS: Aspirin 325 mg Enteric Coated Tablet PO SCH (08:25)
[2017-09-19] MEDS: Enoxaparin Sodium 30 MG/0.3 ML SYRINGE SC SCH (08:26)
[2017-09-19] MEDS: Metoprolol Tartrate 25 MG TAB PO SCH ×2 (08:26→20:27)
[2017-09-19] MEDS: Polyethylene Glycol 3350 17 GM Packet PO SCH (08:26)
[2017-09-19] MEDS: Senokot S 8.6-50 MG TAB PO SCH ×2 (08:27→20:19)
[2017-09-19] MEDS: HumaLOG 300 UNITS/3 ML VIAL SC PRN ×2 (11:39→18:27)
--- NOTE | 2017-09-19 15:24 | PDOC.PN ---
- Subjective Encounter Start Date: 09/19/17 Encounter Start Time: 14:00 Patient seen and examined. No new complaints. No overnight events. Sitting on chair - Objective Resuscitation Status: Resuscitation Status FULL:Full Resuscitation MAR Reviewed: Yes Vital Signs & Weight: Vital Signs (12 hours) Temp Pulse Resp BP BP BP Pulse Ox 09/19/17 11:36 97.9 F 97 15 139/67 93 L 09/19/17 08:25 105 H 147/66 H 09/19/17 08:14 98.5 F 105 H 18 147/66 H 93 L 09/19/17 04:00 98.6 F 86 18 128/72 94 L Weight Weight 162 lb 12.8 oz I&O: 09/18/17 09/19/17 09/20/17 06:59 06:59 06:59 Intake Total 1920 745.1 Output Total 1975 1850 Balance -55 -1104.9 Result Diagrams: 09/20/17 03:30 09/20/17 06:30 Additional Labs: Accuchecks 09/19/17 09/19/17 09/18/17 11:36 06:11 21:01 POC Glucose 201 H 140 H 165 H 09/18/17 17:11 POC Glucose 205 H EKG Reviewed by me: Yes (Tele Afib) Phys Exam - Physical Examination Constitutional: NAD Respiratory: no wheezing, no rhonchi Scat rales at bases Cardiovascular: no rub, irregular Gastrointestinal: soft, non-tender, positive bowel sounds Musculoskeletal: edema present Neurological: moves all 4 limbs Dx/Plan - Plan DVT proph w/lovenox IMPRESSION: 1. Acute on Chronic diastolic HF - on IV Lasix 2. Afib with RVR - Cardizem drip dced 3. OLIVIA on CKD stage 4 - improving 4. DM 2/ HTN 5. Other issues per previous notes PLAN: * Cont current meds as below * Cardio/Nephro following * Cont Diuretics * AM labs * Cont sliding scale * Cont to monitor * DC home with [facility] when ok with consultants * KYLE Renenr in AM * Will start Onglyza at dc * Will dc Invokana and Actos due to CHF/CKD Review of Systems - Review of Systems Respiratory: negative: Cough, Dry, Shortness of Breath, Hemoptysis, SOB with Excertion, Pleuritic Pain, Sputum, Wheezing Cardiovascular: negative: chest pain, palpitations, orthopnea, paroxysmal nocturnal dyspnea, edema, light headedness, other Gastrointestinal: negative: Nausea, Vomiting, Abdominal Pain, Diarrhea, Constipation, Melena, Hematochezia, Other - Medications/Allergies Allergies/Adverse Reactions: Allergies Allergy/AdvReac Type Severity Reaction Status Date / Time No Known Drug Allergies Allergy Verified 09/12/17 07:30 Medications: Current Medications Acetaminophen (Tylenol) 650 mg PO Q4H PRN PRN Reason: Headache/Fever or Pain Acetaminophen (Tylenol) 650 mg ID Q4H PRN PRN Reason: Headache/Fever or Pain Aspirin (Ecotrin) 325 mg PO DAILY [facility] Last Admin: 09/19/17 08:25 Dose: 325 mg Bisacodyl (Dulcolax) 10 mg PO DAILYPRN PRN PRN Reason: Constipation Last Admin: 09/13/17 16:28 Dose: 10 mg Calcium Carbonate (Tums) 1,000 mg PO DAILYPRN PRN PRN Reason: Heartburn or Indigestion Last Admin: 09/15/17 10:18 Dose: 1,000 mg Dextrose/Water (Dextrose 50%) 25 gm SLOW IVP PRN PRN PRN Reason: Hypoglycemia Diltiazem HCl (Cardizem Cd) 240 mg PO DAILY [facility] Last Admin: 09/19/17 08:25 Dose: 240 mg Enoxaparin Sodium (Lovenox) 30 mg SC 0900 [facility] Last Admin: 09/19/17 08:26 Dose: 30 mg Epoetin Zurdo (Procrit) 7,500 units SC Q7D [facility] Last Admin: 09/13/17 14:36 Dose: 7,500 units Famotidine (Pepcid) 20 mg PO Q24HR [facility] Last Admin: 09/18/17 21:10 Dose: 20 mg Ferrous Sulfate (Feosol) 325 mg PO BID[facility] Last Admin: 09/19/17 08:25 Dose: 325 mg Furosemide (Lasix) 20 mg SLOW IVP 0600,1400 [facility] Last Admin: 09/19/17 13:35 Dose: 20 mg Glucagon (Glucagon) 1 mg IM PRN PRN PRN Reason: Hypoglycemia Guaifenesin/Dextromethorphan (Robitussin Dm) 15 ml PO Q4H PRN PRN Reason: Cough Dextrose/Water (D5w) 1,000 mls @ 0 mls/hr IV .Q0M PRN; As Directed PRN Reason: Hypoglycemia Insulin Human Lispro (Humalog) 0 units SC .MILD SLIDING SCALE PRN PRN Reason: Mild Correctional Scale Last Admin: 09/19/17 11:39 Dose: 3 unit Insulin Human Lispro (Humalog) 0 units SC .BEDTIME SLIDING SC PRN PRN Reason: Bedtime Correctional Scale Last Admin: 09/16/17 21:31 Dose: 2 unit Levothyroxine Sodium (Synthroid) 50 mcg PO 0600 [facility] Last Admin: 09/19/17 05:16 Dose: 50 mcg Metoprolol Tartrate (Lopressor) 25 mg PO BID [facility] Last Admin: 09/19/17 08:26 Dose: 25 mg Ondansetron HCl (Zofran Odt) 4 mg PO Q6H PRN PRN Reason: Nausea/Vomiting Ondansetron HCl (Zofran) 4 mg IVP Q6H PRN PRN Reason: Nausea/Vomiting Last Admin: 09/13/17 21:31 Dose: 4 mg Polyethylene Glycol (Miralax) 17 gm PO DAILY [facility] Last Admin: 09/19/17 08:26 Dose: 17 gm Senna/Docusate Sodium (Senokot S) 2 tab PO BID [facility] Last Admin: 09/19/17 08:27 Dose: 2 tab Simvastatin (Zocor) 10 mg PO HS [facility] Last Admin: 09/18/17 21:11 Dose: 10 mg Sodium Chloride (Flush - Normal Saline) 10 ml IVF Q12HR [facility] Last Admin: 09/19/17 08:27 Dose: Not Given Sodium Chloride (Flush - Normal Saline) 10 ml IVF PRN PRN PRN Reason: Saline Flush Last Admin: 09/17/17 05:49 Dose: 10 ml
[2017-09-19] MEDS: Simvastatin 5 MG TAB PO SCH (20:18)
[2017-09-19] MEDS: Famotidine 20 MG TAB PO SCH (20:27)
[2017-09-20] MEDS: Levothyroxine Sodium 50 MCG TAB PO SCH (06:30)
[2017-09-20] MEDS: Furosemide 40 MG/4 ML VIAL SLOW IVP SCH (06:30)
[2017-09-20] MEDS: Ferrous Sulfate 325 MG TAB PO SCH (07:29)
[2017-09-20] MEDS: Enoxaparin Sodium 30 MG/0.3 ML SYRINGE SC SCH (07:29)
[2017-09-20] MEDS: Aspirin 325 mg Enteric Coated Tablet PO SCH (07:29)
[2017-09-20] MEDS: Metoprolol Tartrate 25 MG TAB PO SCH (07:30)
[2017-09-20] MEDS: Senokot S 8.6-50 MG TAB PO SCH (07:30)
[2017-09-20] MEDS: Polyethylene Glycol 3350 17 GM Packet PO SCH (07:30)
[2017-09-20 07:53] LABS: Anion Gap 13 mmol/L (10-20); BUN (Urea Nitrogen) 67 mg/dL (9.8-20.1); Calc. Creatinine Clearance 29 mL/min (70-130); Calcium 10.6 mg/dL (7.8-10.44); Carbon Dioxide 32 mmol/L (23-31); Chloride 103 mmol/L (98-107); Estimated GFR-MDRD 28; Glucose 158 mg/dL (83-110); Potassium 3.7 mmol/L (3.5-5.1); Sodium 144 mmol/L (136-145)
[2017-09-20 07:56] LABS: Hemoglobin 8.5 g/dL (12.0-16.0); Platelet Count 174 thou/uL (130-400)
--- NOTE | 2017-09-20 09:46 | PRG ---
DATE OF SERVICE: 09/20/2017 HISTORY OF PRESENT ILLNESS: Ms. Orellana appears better. She is seen sitting up in a chair, more aler t. Her heart rate also appears more controlled. Heart rate has been in the 70s-80s. She is current ly on Cardizem 240 q.a.m. PHYSICAL EXAMINATION: VITAL SIGNS: Blood pressure 134/72, pulse 94, temperature 98, -917 net I's and O's. Weight 159, isis n from 169. LUNGS: Clear to auscultation. CARDIAC: Irregularly irregular. ABDOMEN: Soft, nontender, nondistended. EXTREMITIES: 1+ pitting edema. PERTINENT LABORATORY DATA: Hemoglobin 8.5, creatinine 1.76 which appears stable. IMPRESSION: 1. Atrial fibrillation. 2. Diastolic dysfunction. RECOMMENDATIONS: Continue current medical therapy. She again states she is not interested in procee ding with anticoagulation therapy. She states she has tried this in the past and had a bleeding issu e. She is okay with proceeding with aspirin, which is not felt to be as protective for stroke versus anticoagulation treatment. Otherwise, I have no further recommendations.
[2017-09-20 11:02] VITALS: BP 136/63; TEMP 97.6
[2017-09-20] MEDS: Epoetin (ESRD) 20,000 UNITS/ML SC SCH (11:24)
--- NOTE | 2017-09-20 13:58 | DIS ---
DATE OF ADMISSION: 09/11/2017 DATE OF DISCHARGE: 09/20/2017 DISCHARGE DISPOSITION: Home with home health care through [facility]. ALLERGIES: No known drug allergies. The patient was seen and examined on the day of discharge. Denies any new complaints, no chest pain, shortness of breath, palpitations. DISCHARGE MEDICATIONS: 1. Aspirin 325 mg daily. 2. Cardizem CD 240 mg daily. 3. Lasix 20 mg twice a day. 4. Metoprolol tartrate 25 mg twice a day. 5. Onglyza 2.5 mg daily. 6. Other home medications were resumed including vitamin D3, levothyroxine, multivitamins, MiraLax, pravastatin and Tylenol. Please note that hydrochlorothiazide, Invokana, Actos and chlorthalidone wi th atenolol has been discontinued. Primary care physician is advised to follow. BRIEF HOSPITAL COURSE: The patient is an 81-year-old female with diabetes mellitus type 2, atrial fi brillation, hypertension, hyperlipidemia, and renal insufficiency, presented to the emergency room wi th shortness of breath. Please refer to the history and physical dated 09/11/[address] Beltrán for f urther details. The patient was admitted to the hospital with a diagnosis of acute congestive heart failure exacerbat ion. Her BNP on admission was 939. Her troponins on admission was 2.72 with a maximum troponin of 3 .18. She was started on diuretics per fence laborer, Dr. Harrison. The patient was also seen by Cardiolog y, Dr. Mondragon for atrial fibrillation with rapid ventricular response requiring Cardizem drip. Sh e appears to be euvolemic at this time. Her weight on the day of discharge is 159 pounds compared to 169 pounds on admission. The patient has been cleared by consultants for discharge. Aspirin has be en increased to 325 mg daily for stroke prophylaxis. Patient has been cleared by consultants for dis charge. FINAL DIAGNOSES: 1. Acute on chronic diastolic heart failure exacerbation. 2. Atrial fibrillation with rapid ventricular response requiring Cardizem drip. 3. Acute kidney injury on chronic kidney disease stage 4, probably secondary to cardiorenal syndrome . 4. Hypertension. 5. Diabetes mellitus type 2. 6. Chronic anemia. Plan of care was discussed with the patient in detail. She stated understanding. Home health care w ill be arranged. DIAGNOSTIC TESTS: 1. Chest x-ray on admission showed pulmonary vascular congestion. 2. Echocardiogram showed left ventricular ejection fraction 55%-60% with mild concentric left ventri cular hypertrophy, moderate mitral regurgitation, and moderate tricuspid regurgitation. Total time coordinating the discharge of this patient including counseling for heart failure was 38 m inutes.
== END 2017-09-20 13:48 | disposition home health service (06) | DRG 291 ==
LOC: ERS 17:04 → 2NO 18:15
PROVIDERS: ADMIT Emergency Medicine; ATTEND Emergency Medicine
DX: I13.0 Hypertensive heart and chronic kidney disease with heart failure and stage 1 through stage 4 chronic kidney disease, or unspecified chronic kidney disease (principal); I50.33 Acute on chronic diastolic (congestive) heart failure; N18.4 Chronic kidney disease, stage 4 (severe); I48.0 Paroxysmal atrial fibrillation; D63.1 Anemia in chronic kidney disease; E66.01 Morbid (severe) obesity due to excess calories; E11.9 Type 2 diabetes mellitus without complications; E03.9 Hypothyroidism, unspecified; E78.5 Hyperlipidemia, unspecified; R00.1 Bradycardia, unspecified; R29.6 Repeated falls; Z79.82 Long term (current) use of aspirin; Z79.84 Long term (current) use of oral hypoglycemic drugs; Z79.899 Other long term (current) drug therapy
CPT/HCPCS: 36415; 36416; 80048; 80061; 81001; 82248; 83036; 83735; 84439; 84443; 85014; 85018; 85025; 85049; 93306; 93798; 99285; G8978-GP-CM; G8979-GP-CK; G8987-GO-CM; G8988-GO-CJ; J1650; J1940; J2405; J7050; P9047; Q0162; Q4081

== ENCOUNTER 2017-10-06 18:30 | Inpatient (IN) | payer MEDICARE ==
[2017-10-06 19:22] LABS: Hemoglobin 9.6 g/dL (12.0-16.0); Mean Corpuscular Hemoglobin 23.5 pg (27.0-31.0); Mean Platelet Volume 10.7 fL (7.4-10.4); Platelet Count 247 thou/uL (130-400); RBC Distribution Width 22.1 % (11.5-14.5); Red Blood Cell (RBC) Count 4.11 mill/uL (4.20-5.40); White Blood Cell (WBC) Count 16.8 thou/uL (4.8-10.8)
[2017-10-06 19:39] LABS: ALT (SGPT) 45 U/L (8-55); AST (SGOT) 36 U/L (5-34); Albumin 3.6 g/dL (3.4-4.8); Alkaline Phosphatase 114 U/L (40-150); Anion Gap 18 mmol/L (10-20); BUN (Urea Nitrogen) 66 mg/dL (9.8-20.1); Bilirubin, Total 1.5 mg/dL (0.2-1.2); Calc. Creatinine Clearance 0 mL/min (70-130); Carbon Dioxide 28 mmol/L (23-31); Chloride 98 mmol/L (98-107); Estimated GFR-MDRD 20; Globulin 2.8 g/dL (2.4-3.5); Glucose 221 mg/dL (83-110); Potassium 3.9 mmol/L (3.5-5.1); Protein, Total 6.4 g/dL (6.0-8.3); Sodium 140 mmol/L (136-145)
[2017-10-06 19:42] LABS: Anisocytosis SLIGHT = 6-15 cells (100X) (0-5/hpf); Band 5 % (5-11); Hypochromia SLIGHT = 6-15 cells (100X) (0-5/hpf); Lymphocytes 8 % (21-51); MDiff Complete? YES; Monocytes 7 % (0-10); Neutrophil 80 % (42-75); PLT Morphology Comment Appears Adequate; Target Cells SLIGHT = 2-5 cells (100X) (0-1/hpf)
--- NOTE | 2017-10-06 20:48 | ULT ---
RIGHT LOWER EXTREMITY VENOUS DOPPLER 10/06/17 PROVIDED CLINICAL HISTORY: Right lower extremity pain and edema. FINDINGS: joseph scale and color doppler sonography with spectral analysis was performed of the right common femo ral, femoral, popliteal, posterior tibial, greater saphenous and profunda femoral veins, demonstratin g a normal sonographic appearance to each. IMPRESSION: No sonographic evidence for right lower extremity deep venous thrombosis. POS: [facility]
[2017-10-06] MEDS ORDERED: Piperacillin/Tazobactam 3.375 GM VIAL ONE (20:54)
--- NOTE | 2017-10-06 23:02 | RAD ---
PORTABLE CHEST ONE VIEW: 10/06/17 at 10:29 p.m. HISTORY: Right leg pain, CHF. FINDINGS/IMPRESSION: The heart size is borderline. There is pulmonary vascular congestion with right pleural effusion. No pneumothoraces are seen. POS: [facility]
[2017-10-06] MEDS ORDERED: Acetaminophen 325 MG TAB PO PRN (23:37)
[2017-10-06] MEDS ORDERED: Sodium Chloride 0.9% 1,000 ML IV SCH (23:37)
[2017-10-06] MEDS ORDERED: Ondansetron ODT 4 MG TAB SL PRN (23:37)
[2017-10-06] MEDS ORDERED: Ondansetron HCl/PF 4 MG/2 ML Vial IVP PRN (23:37)
[2017-10-06 23:56] VITALS: BMI 26.4
[2017-10-07] MEDS ORDERED: Furosemide 20 MG/2 ML VIAL SLOW IVP SCH (00:30)
[2017-10-07] MEDS ORDERED: Dextrose 50% Abboject 50 ML SYRINGE SLOW IVP PRN (04:59)
[2017-10-07] MEDS ORDERED: Dextrose 5% in Water 1,000 ML IV PRN (04:59)
[2017-10-07 05:58] LABS: Anisocytosis SLIGHT = 6-15 cells (100X) (0-5/hpf); Band 21 % (5-11); Hemoglobin 8.7 g/dL (12.0-16.0); Lymphocytes 7 % (21-51); MDiff Complete? YES; Mean Corpuscular Volume 82.1 fl (81.0-99.0); Mean Platelet Volume 10.3 fL (7.4-10.4); Monocytes 2 % (0-10); Neutrophil 70 % (42-75); Platelet Count 225 thou/uL (130-400); RBC Distribution Width 22.1 % (11.5-14.5); Red Blood Cell (RBC) Count 3.77 mill/uL (4.20-5.40); Schistocytes SLIGHT = 2-5 cells (100X) (0-1/hpf); Target Cells SLIGHT = 2-5 cells (100X) (0-1/hpf); White Blood Cell (WBC) Count 13.7 thou/uL (4.8-10.8)
[2017-10-07] MEDS ORDERED: Piperacillin/Tazobactam 3.375 GM in Sodium Chloride 0.9% 100 ML IVPB SCH ×2 (06:00→22:00)
[2017-10-07] MEDS ORDERED: cefTRIAXone\\ROCEPHIN 2 GM in Sodium Chloride 0.9% 100 ML IVPB SCH (06:00)
[2017-10-07 06:10] LABS: Anion Gap 13 mmol/L (10-20); BUN (Urea Nitrogen) 70 mg/dL (9.8-20.1); Calc. Creatinine Clearance 20 mL/min (70-130); Calcium 9.2 mg/dL (7.8-10.44); Carbon Dioxide 32 mmol/L (23-31); Chloride 98 mmol/L (98-107); Estimated GFR-MDRD 19; Glucose 317 mg/dL (83-110); Potassium 3.8 mmol/L (3.5-5.1); Sodium 139 mmol/L (136-145)
[2017-10-07] MEDS: Levothyroxine Sodium 50 MCG TAB PO SCH (06:12)
[2017-10-07] MEDS: HumaLOG 300 UNITS/3 ML VIAL SC PRN ×2 (06:27→18:06)
--- NOTE | 2017-10-07 07:39 | HP ---
PRIMARY CARE PHYSICIAN: Maryam Hdialgo M.D. CHIEF COMPLAINT: Right leg sharp pain. HISTORY OF PRESENT ILLNESS: The patient is a very pleasant 81-year-old female. The patient was rece ntly discharged from the hospital on 09/20 for acute on chronic diastolic heart failure exacerbation. The patient presents today with sudden onset of right lower extremity leg pain. The patient states that she normally either walks with her cane or with a walker; however, she has been having more scotty n on ambulation and has been requiring to use the walker more frequently due to this right leg pain. The patient states that she has been having a decreased appetite also for the past few months. The patient states that she has been taking her medications as prescribed. PAST MEDICAL HISTORY: 1. History of diastolic heart failure. 2. History of AFib. 3. History of diabetes. 4. History of hypothyroidism. 5. Hyperlipidemia. 6. Hypertension. SURGICAL HISTORY: She had some orthopedic surgery of the right femur and right ankle. SOCIAL HISTORY: She lives alone. She denies any history of smoking, alcohol or drug use. FAMILY HISTORY: Denies any history of diabetes or hypertension. DRUG ALLERGIES: She has no known drug allergies. MEDICATIONS: From the MAR. From her previous discharge, she takes diltiazem 240 mg daily, Lasix 20 mg twice a day, metoprolol 25 mg twice a day, multivitamin 1 p.o. daily, aspirin 81 mg daily, Prilose c 20 mg daily, Synthroid 50 mcg daily, vitamin D3 one daily, and MiraLax 17 g oral. PHYSICAL EXAMINATION: VITAL SIGNS: She is afebrile 97.6, oxygen saturation 95% on room air, pulse is 98, 12 respirations, blood pressure of 104/62. GENERAL: She is awake, alert, oriented x3, appears to be a little bit on the dehydrated side. CARDIOVASCULAR: S1, S2 present. No murmurs, rubs, or gallops. LUNGS: She has got diminished breath sounds to her right upper and lower lung. No wheezes or rhonch i noted. ABDOMEN: Soft, nontender. Bowel sounds present x2. EXTREMITIES: She has got pitting edema +2 to bilateral lower extremity. Her right leg has a maybe 2 -inch very superficial wound, which the patient states that when she was removing her LUDWIG stockings, her skin was pulled out. It is very superficial. Does have mild erythema of the right leg, very mil d. Both legs are warm to touch. I did not appreciate any worsening erythema, warmth, tenderness on the right leg compared to the left leg. LABORATORY DATA: WBCs of 16.8, hemoglobin of 9.6, hematocrit of 33.3, platelets of 247 and I do not appreciate any 5 bands. Chemistry powell, sodium of 140, potassium of 3.9, BUN of 66, and creatinine o f 2.34. Her sugars were a little bit high in 221 and her proBNP was 1458. Chest x-ray that was orde red, she has got severe right-sided pleural effusion. ASSESSMENT AND PLAN: The patient is a very pleasant 81-year-old female who presents to the hospital with complaints of right leg pain. 1. Mild right leg cellulitis given her mild elevated WBCs. She does have a superficial skin tear on her right gastelum area. I think ceftriaxone should be able to cover the cellulitis. If her cellulitis or if her redness or erythema does not improve in the next day or so, may consider adding an additio nal antibiotic. She did have venous Dopplers done to her right lower extremity, which was negative f or deep venous thrombosis. 2. Right-sided pleural effusion. I will try and see if I can gently give her IV diuretics; however, the patient's blood pressure is little bit on the lower side. She may require a thoracentesis of th e right side. She has got significant pleural effusion. 3. History of diastolic heart failure. She has elevated proBNP. We will again continue with IV diu retics and continue to monitor. 4. Acute kidney injury on chronic kidney disease. Her creatinine at baseline is 1.5 to 1.8, today a t 2.34. We will continue to monitor. This could be secondary to decreased intravascular fluid; moss denise, she is significantly third spacing. 5. Diabetes. We will start the patient on sliding scale and continue to monitor. 6. Deep venous thrombosis prophylaxis. We will put the patient on subcutaneous heparin.
--- NOTE | 2017-10-07 08:00 | RAD ---
RIGHT HIP RADIOGRAPHS: DATE: 10/07/17. PROVIDED CLINICAL HISTORY: Right hip pain. FINDINGS: No comparison examinations are available. There is no evidence for an acute fracture or other acute osseous abnormality involving the right hip. Postoperative changes involving the right femur are dem onstrate without evidence for hardware loosening or migration. IMPRESSION: No evidence for fracture or other acute osseous abnormality. If there is persistent clinical concern , conservative management and followup imaging are advised. POS: [facility]
[2017-10-07] MEDS ORDERED: Metoprolol Tartrate 25 MG TAB PO SCH ×2 (09:00)
[2017-10-07] MEDS: Aspirin 325 mg Enteric Coated Tablet PO SCH (09:31)
[2017-10-07] MEDS: Heparin 5,000 UNITS/ML VIAL SC SCH ×2 (09:32→21:38)
[2017-10-07] MEDS ORDERED: Furosemide 100 MG/10 ML VIAL SLOW IVP SCH ×2 (12:00→12:45)
[2017-10-07] MEDS ORDERED: Furosemide 40 MG/4 ML VIAL SLOW IVP SCH (12:00)
--- NOTE | 2017-10-07 12:35 | PDOC.PN ---
- Subjective Encounter Start Date: 10/07/17 Encounter Start Time: 12:33 Patient seen and examined, admits to having sypmtoms of loss of appetite, changes in sleep patter, fatigue, lower extremity swelling and taste changes for the past 4-5 months. She also states she was told 3-4 months ago that she may need dialysis by another doctor. No family at bedside, all questions answered. - Objective Vital Signs & Weight: Vital Signs (12 hours) Temp Pulse Resp BP BP Pulse Ox 10/07/17 11:05 97.4 F L 100 18 91/48 L 99 10/07/17 08:00 97.5 F L 61 16 89/56 L 97/46 L 100 10/07/17 02:55 97.5 F L 81 22 H 105/50 L 92 L Weight Weight 159 lb 3 oz I&O: 10/06/17 10/07/17 10/08/17 06:59 06:59 06:59 Intake Total 482 120 Output Total 100 Balance 382 120 Result Diagrams: 10/07/17 05:28 10/07/17 05:28 Additional Labs: Accuchecks 10/07/17 10/07/17 10/07/17 11:03 06:28 00:45 POC Glucose 261 H 293 H 327 H Phys Exam - Physical Examination Constitutional: NAD HEENT: PERRLA, moist MMs Neck: no nodes, no JVD, supple Respiratory: no wheezing, no rales, no rhonchi Cardiovascular: RRR, no significant murmur, no rub Gastrointestinal: soft, non-tender, no distention Musculoskeletal: pulses present, edema present (3+ pitting edema B/L LE) cellulitis of RLE Neurological: non-focal, normal sensation Dx/Plan (1) Cellulitis Code(s): L03.90 - CELLULITIS, UNSPECIFIED Status: Acute (2) Edema Code(s): R60.9 - EDEMA, UNSPECIFIED Status: Acute (3) Uremic syndrome Code(s): N19 - UNSPECIFIED KIDNEY FAILURE Status: Acute (4) Cardiorenal syndrome with renal failure Code(s): I13.10 - HYP HRT & CHR KDNY DIS W/O HRT FAIL, W STG 1-4/UNSP CHR KDNY; N19 - UNSPECIFIED KIDNEY FAILURE Status: Acute Comment: nephrology is consulted. Will follow recommedations. (5) DM type 2 (diabetes mellitus, type 2) Status: Acute Comment: Well controlled. SSI. (6) Hypertension Code(s): I10 - ESSENTIAL (PRIMARY) HYPERTENSION Status: Acute Comment: Continue with Hydralazine prn - Plan * obtain 24 hour urine, renal US and place greene for now * dialysis options d/w patient, states she'd like 24 hours to decide for now * will also obtain an Echo to evaluate cardiac function * continue with current plan of care * change status to inpatient as if she opts to proceed with dialysis she will need catheter placement as well as SNF placement for out patient HD as she will likely be too unstable for out patient dialysis at a unit * BMP in AM * will consult renal specialty if patient opts to proceed with HD * case and plan d/w patient at length, she understands and agrees with this plan * nurse present during conversation as well and updated on the plan
--- NOTE | 2017-10-07 13:26 | ULT ---
RENAL ULTRASOUND: DATE: 10/07/17. PROVIDED CLINICAL HISTORY: Renal failure. FINDINGS: The right kidney measures about 9.4 x 4.5 x 4.2 cm and demonstrates no evidence for hydronephrosis or mass. The left kidney measures about 9.1 x 5 x 4.5 cm and demonstrates no evidence of hydronephrosis or mas s. The urinary bladder is decompressed by Renner catheter. A small amount of free fluid is suspected in the left upper quadrant. IMPRESSION: 1. No evidence for hydronephrosis. 2. Possible small amount of left upper quadrant free intraperitoneal fluid. POS: [facility]
[2017-10-07 16:20] LABS: Bilirubin Small (Negative); Blood, Urine Large (Negative); Clarity TURBID (Clear); Glucose, Urine (Dipstick) 100 mg/dL (Negative); Leukocyte Trace (Negative); Nitrite Negative (Negative); Protein, Urine (Dipstick) 300 mg/dL (Neg-Trace); Specific Gravity, Urine 1.027 (1.002-1.036)
[2017-10-07 16:26] LABS: Pathc Cast-AUWi Flag 97.67 (0-2.49)
[2017-10-07] MEDS: Piperacillin/Tazobactam 2.25 GM in Sodium Chloride 0.9% 100 ML IVPB SCH ×2 (16:30→23:54)
[2017-10-07 16:35] LABS: Bacteria/HPF 4+ HPF (None Seen); Hyaline Casts/LPF NONE SEEN LPF (0-3 Hyaline); Yeast-All Forms None Seen HPF (None Seen)
[2017-10-07 16:36] LABS: Manual Microscopic Reviewed? No Path Casts Seen
--- NOTE | 2017-10-07 17:30 | PDOC.EVN ---
Event Note - Event Note Event Note: Patient received 100mg of IV lasix and has had no urine output. Patient was told a few months back she was close to dialysis. Patient's famliy is at bedside , they would like a day to make their decision, will place a consult to palliative care to help with decision making and possible transition to hospice care if family opts to not pursue dialysis. Call also placed to Dr. Harrison as he saw her last time. Case d/w Dr. Harrison on phone, will await family decision in AM. Case and plan d/w patient and family at length, they understand and agree with this plan. Patient designated her daughter Phylicia as her decision maker.
[2017-10-07] MEDS: Metoprolol Tartrate 25 MG TAB PO SCH (21:39)
[2017-10-07] MEDS: Simvastatin 20 MG TAB PO SCH (21:39)
[2017-10-08 05:45] LABS: Anion Gap 16 mmol/L (10-20); BUN (Urea Nitrogen) 76 mg/dL (9.8-20.1); Calc. Creatinine Clearance 17 mL/min (70-130); Calcium 9.1 mg/dL (7.8-10.44); Carbon Dioxide 27 mmol/L (23-31); Chloride 97 mmol/L (98-107); Estimated GFR-MDRD 16; Glucose 137 mg/dL (83-110); Sodium 136 mmol/L (136-145)
[2017-10-08] MEDS: Levothyroxine Sodium 50 MCG TAB PO SCH (06:06)
[2017-10-08] MEDS: Heparin 5,000 UNITS/ML VIAL SC SCH ×2 (08:41→22:00)
[2017-10-08] MEDS: Aspirin 325 mg Enteric Coated Tablet PO SCH (08:41)
[2017-10-08] MEDS: Piperacillin/Tazobactam 2.25 GM in Sodium Chloride 0.9% 100 ML IVPB SCH ×2 (08:42→15:28)
--- NOTE | 2017-10-08 08:50 | PRG ---
DATE OF SERVICE: 10/08/2017 RENAL MEDICINE SUBJECTIVE: Ms. Orellana is an 81-year-old white female with known history of chronic renal failure se condary to presumed diabetic nephropathy and was admitted for congestive heart failure. She does hav e history of diastolic heart failure. She has been previously seen by the Renal Service and that susy aron the problem with her was a hemodynamically mediated renal dysfunction. Her creatinine stabilized a t about 1.5. She is now readmitted back due to exacerbation of her CHF. She is currently being diur esed. Her breathing this morning is much improved. Medications of 10/08/2017 showed the following; Ecotrin 325 mg every day, Lasix 40 mg IV every day, h eparin 5000 units subcu daily, Humalog sliding scale, Synthroid 50 mcg every day, Lopressor 25 mg p.o . b.i.d., Zosyn 2.25 grams IV q.6, simvastatin 10 mg tab at bedtime. PHYSICAL EXAMINATION: VITAL SIGNS: Blood pressure 101/54, heart rate 99, respiratory rate 20, temperature 98.4, pulse ox 9 8%. GENERAL: Noted to be awake, alert, and comfortable. The patient is obese. SKIN: Adequate turgor. HEENT: She has slightly pale conjunctivae, anicteric sclerae. NECK: No neck mass, no carotid bruits, no JVD. CHEST: No deformities. LUNGS: Decreased breath sounds, no wheezing. HEART: Normal sinus rhythm. No murmurs, no gallops, no rubs. ABDOMEN: Globular, soft, nontender. No masses. EXTREMITIES: Positive for edema. LABORATORY DATA: Laboratories of 10/07/2017, white count 13.7, hemoglobin 8.7. Sodium 136, potassiu m 4, chloride 97, carbon dioxide 27, BUN 76, creatinine 2.91, glucose 137, calcium 9.1. On 10/07/2017, creatinine noted to be at 2.47. ASSESSMENT AND PLAN: 1. Congestive heart failure - continue current diuretic regimen. Currently on 40 mg IV daily of Las ix. 2. Acute kidney injury on top of her chronic renal failure. My bias is to start her back again on s alt poor albumin 25 grams IV q.6 while she is on a diuretic. There is no indication for any dialytic intervention at the present time. 3. Chronic renal failure secondary to an underlying diabetic nephropathy. Her worsening renal dysfu nction is all hemodynamically mediated renal dysfunction secondary to her congestive heart failure. 4. Anemia. Start Epogen 7500 units every week. Patient and family have decided whether they want to pursue dialysis in the near future.
[2017-10-08] MEDS: Metoprolol Tartrate 25 MG TAB PO SCH ×2 (09:24→22:01)
--- NOTE | 2017-10-08 09:56 | PDOC.PN ---
- Subjective Encounter Start Date: 10/08/17 Encounter Start Time: 09:54 Patient seen and examined, no new issues or complaints. All questions answered, no family at bedside. - Objective Vital Signs & Weight: Vital Signs (12 hours) Temp Pulse Resp BP Pulse Ox 10/08/17 08:00 98.4 F 99 20 101/54 L 98 10/08/17 06:05 97.7 F 10/08/17 05:19 96.1 F L 10/08/17 04:00 94.9 F L 81 18 101/54 L 97 10/08/17 00:00 97.7 F 78 18 98/51 L 100 I&O: 10/07/17 10/08/17 10/09/17 06:59 06:59 06:59 Intake Total 360 Output Total 40 Balance 320 Result Diagrams: 10/07/17 05:28 10/08/17 04:01 Additional Labs: Accuchecks 10/08/17 10/07/17 10/07/17 03:56 20:52 16:39 POC Glucose 160 H 238 H 305 H Phys Exam - Physical Examination Constitutional: NAD HEENT: PERRLA Neck: no nodes, no JVD Respiratory: no wheezing, no rales, no rhonchi Cardiovascular: RRR, no significant murmur, no rub Gastrointestinal: soft, non-tender, no distention Musculoskeletal: pulses present, edema present (2+ pitting edema) Neurological: normal sensation answering all questions appropriately Psychiatric: normal affect, A&O x 3 Deviation from normal: bruises noted Dx/Plan (1) Cellulitis Code(s): L03.90 - CELLULITIS, UNSPECIFIED Status: Acute (2) Edema Code(s): R60.9 - EDEMA, UNSPECIFIED Status: Acute (3) Uremic syndrome Code(s): N19 - UNSPECIFIED KIDNEY FAILURE Status: Acute (4) Cardiorenal syndrome with renal failure Code(s): I13.10 - HYP HRT & CHR KDNY DIS W/O HRT FAIL, W STG 1-4/UNSP CHR KDNY; N19 - UNSPECIFIED KIDNEY FAILURE Status: Acute Comment: nephrology is consulted. Will follow recommedations. (5) DM type 2 (diabetes mellitus, type 2) Status: Acute Comment: Well controlled. SSI. (6) Hypertension Code(s): I10 - ESSENTIAL (PRIMARY) HYPERTENSION Status: Acute Comment: Continue with Hydralazine prn - Plan * Patient has had minimal to no urine output in the past 24 hours. Cr levels continue to rise * renal consulted * VERY HIGH probability that she will need HD, she was told a few months back she is close to dialysis * long discussion held with family yesterday * family will be discussing with paliative care today at 10am as well and then deciding wether to pursue aggressive renal management with probable dialysis vs palliative care * continue current plan of care with no changes otherwise for now. * case and plan d/w patient at length, she understands and agrees with this plan
[2017-10-08] MEDS: Albumin 25% 25 GM/100 ML BOT IVPB SCH ×3 (10:39→21:59)
[2017-10-08] MEDS: Furosemide 40 MG/4 ML VIAL SLOW IVP SCH (11:50)
[2017-10-08] MEDS: HumaLOG 300 UNITS/3 ML VIAL SC PRN ×2 (11:51→17:38)
--- NOTE | 2017-10-08 14:41 | PQF ---
CLINICAL DOCUMENTATION IMPROVEMENT CLARIFICATION FORM: ICD-10 Updated PLEASE DO AN ADDENDUM TO THE PROGRESS NOTE WITH ANY DOCUMENTATION UPDATES OR ADDITIONS AND CARRY THROUGH TO DC SUMMARY. THANK YOU. DATE: 10/08 ATTN: DR. BERNARDO FONTENOT Please exercise your independent, professional judgment in responding to the clarification form. Clinical indicators are provided on the bottom of this form for your review Please check appropriate box(s): DIASTOLIC HEART FAILURE ACUITY [ ] Acute [ x ] Acute on Chronic [ ] Chronic [ ] Other diagnosis [ ] Unable to determine For continuity of documentation, please document condition throughout progress notes and discharge summary. Thank You. CLINICAL INDICATORS - SIGNS / SYMPTOMS / LABS PHYSICIAN H&P DOCUMENTATION 10/06: PAST MEDICAL HX: DIASTOLIC HEART FAILURE. PHYSICAL EXAM: SHE HAS GOT PITTING EDEMA 2+ TO B LE. ASSESSMENT & PLAN: 2) R SIDED PLEURAL EFFUSION; 3) HX DIASTOLIC HF. SHE HAS ELEVATED proBNP. WE WILL AGAIN CONTINUE W/IV DIURETICS NEPHROLOGY PN 10/08: ASSESSMENT/PLAN: 1) CHF - CONTINUE CURRENT DIURETIC REGIMEN. CURRENTLY ON 40 MG IV DAILY OF LASIX RISKS: R-SIDED PLEURAL EFFUSION HX DIASTOLIC HEART FAILURE DM II HTN CARDIORENAL SYNDROME TREATMENTS: IV LASIX (10/07 - PRESENT) NEPHROLOGY CONSULT ECHO (PENDING) THANK YOU! Kavya (This form is maintained as a part of the permanent medical record) 2014 [employer]. All Rights Reserved [facility]
--- NOTE | 2017-10-08 14:48 | PQF ---
CLINICAL DOCUMENTATION IMPROVEMENT CLARIFICATION FORM: ICD-10 Updated PLEASE DO AN ADDENDUM TO THE PROGRESS NOTE WITH ANY DOCUMENTATION UPDATES OR ADDITIONS AND CARRY THROUGH TO DC SUMMARY. THANK YOU. DATE: 10/08 ATTN: DR. BERNARDO FONTENOT Please exercise your independent, professional judgment in responding to the clarification form. Clinical indicators are provided on the bottom of this form for your review Please check appropriate box(s): [ x ] UTI [ ] Contaminated urine specimen without UTI [ ] Other diagnosis [ ] Unable to determine For continuity of documentation, please document condition throughout progress notes and discharge summary. Thank You. CLINICAL INDICATORS - SIGNS / SYMPTOMS/ LABS are present in the medical record: URINALYSIS 10/07: LARGE BLOOD, TRACE LEUKOCYTE ESTERASE, WBC 11-20, 4+ BACTERIA URINE CULTURE: NON-HEMOLYTIC STREPTOCOCCUS RISK FACTORS: DM II ADVANCED AGE (81) POSITIVE URINE CULTURE TREATMENT: IV ANTIBIOTIC (IV ZOSYN 10/07 - PRESENT) THANK YOU! Kavya (This form is maintained as a part of the permanent medical record) 2014 [employer]. All Rights Reserved Kavya Everett RN, BSN [email or web address] Office: [phone] [facility]ENTER[facility]
[2017-10-08] MEDS: Simvastatin 20 MG TAB PO SCH (22:00)
[2017-10-09] MEDS: Piperacillin/Tazobactam 2.25 GM in Sodium Chloride 0.9% 100 ML IVPB SCH ×2 (00:53→08:35)
[2017-10-09] MEDS: Albumin 25% 25 GM/100 ML BOT IVPB SCH ×2 (03:19→08:35)
[2017-10-09 05:50] LABS: Anion Gap 16 mmol/L (10-20); BUN (Urea Nitrogen) 89 mg/dL (9.8-20.1); Calc. Creatinine Clearance 15 mL/min (70-130); Calcium 9.1 mg/dL (7.8-10.44); Carbon Dioxide 29 mmol/L (23-31); Chloride 95 mmol/L (98-107); Estimated GFR-MDRD 13; Glucose 149 mg/dL (83-110); Sodium 136 mmol/L (136-145)
[2017-10-09 05:54] LABS: #Eosinphils 0.1 thou/uL (0.0-0.7); #Monocytes 0.7 thou/uL (0.11-0.59); #Neutrophils 8.7 thou/uL (1.40-6.50); %Basophils 0.4 % (0.0-1.0); %Eosinophils 0.5 % (0.0-10.0); %Lymphocytes 9.8 % (21.0-51.0); %Monocytes 6.5 % (0.0-10.0); %Neutrophils 82.8 % (42.0-75.0); Acanthocytes SLIGHT = 1-5 cells (100X) (None Seen); Anisocytosis SLIGHT = 6-15 cells (100X) (0-5/hpf); Elliptocytes SLIGHT = 2-5 cells (100X) (0-1/hpf); Hemoglobin 8.1 g/dL (12.0-16.0); Hypochromia MODERATE=16-30 cells (100X) (0-5/hpf); MDiff Complete? YES; Mean Corpuscular HGB CONC 27.2 g/dL (32.0-36.0); Mean Corpuscular Hemoglobin 23.1 pg (27.0-31.0); Mean Corpuscular Volume 84.8 fl (81.0-99.0); Mean Platelet Volume 10.6 fL (7.4-10.4); Platelet Count 183 thou/uL (130-400); RBC Distribution Width 22.2 % (11.5-14.5); Red Blood Cell (RBC) Count 3.49 mill/uL (4.20-5.40); Target Cells SLIGHT = 2-5 cells (100X) (0-1/hpf); White Blood Cell (WBC) Count 10.5 thou/uL (4.8-10.8)
[2017-10-09] MEDS: Levothyroxine Sodium 50 MCG TAB PO SCH (06:08)
[2017-10-09] MEDS ORDERED: Epoetin (ESRD) 20,000 UNITS/ML SC SCH (08:30)
[2017-10-09] MEDS: Heparin 5,000 UNITS/ML VIAL SC SCH (08:35)
[2017-10-09] MEDS: Aspirin 325 mg Enteric Coated Tablet PO SCH (08:35)
[2017-10-09] MEDS: Metoprolol Tartrate 25 MG TAB PO SCH (08:35)
--- NOTE | 2017-10-09 08:44 | PRG ---
DATE OF SERVICE: 10/09/2017 RENAL MEDICINE SUBJECTIVE: Ms. Orellana is an 81-year-old white female with known history of chronic renal failure an d was initially admitted for some right leg pain. She was also noted of have shortness of breath whi ch is chronic in nature. She does have a history of diastolic heart failure. We were consulted due to her worsening renal dysfunction. She is currently on IV Lasix 40 mg IV daily. In addition, we huffman ve also started on salt poor albumin. However, renal function is noted to be still worsening. Her s hortness of breath is actually much improved. She voices no new complaints. PHYSICAL EXAMINATION: VITAL SIGNS: Blood pressure is 110/53, heart rate 86, respiratory rate 19, pulse ox 96%, temperature 97.5. GENERAL: Awake, alert, comfortable, not in overt distress, obese. SKIN: Adequate turgor. HEENT: She has pale conjunctivae, anicteric sclerae. NECK: No neck mass, no carotid bruits, no JVD. CHEST: No deformities. LUNGS: Decreased breath sounds. HEART: Irregularly irregular. No murmurs, no gallops, no rubs. ABDOMEN: Globular, soft, nontender, no masses. EXTREMITIES: Trace edema. MEDICATIONS: Medications of 10/09/2017 reviewed. LABORATORY DATA: Laboratories of 10/09/2017; white count 10.5, hemoglobin 8.1, and hematocrit 29.6. Sodium 136, potassium 4, chloride 95, carbon dioxide 29, BUN 89, creatinine 3.31, GFR 13 mL per harley te, glucose 149, calcium 9.1. ASSESSMENT AND PLAN: 1. Acute kidney injury on top of her chronic renal failure - worsening renal function. Currently, c reatinine is 3.31. My plan is simply to continue to observe her. If the renal function further wors ens, we can either decrease the Lasix dose or hold it off temporarily. For the moment, continue salt poor albumin. 2. Diastolic heart failure - clinically improved. Her last cardiac echo showed a normal ejection fr action. 3. Anemia. Start Epogen 7500 units subcu every week, ferrous sulfate 325 mg tab once a day - p.r.n. blood transfusion. Overall, prognosis remains guarded.
--- NOTE | 2017-10-09 10:23 | PDOC.EVN ---
Event Note - Event Note Event Note: DC SUMMARY #[id number]
[2017-10-09] MEDS: Furosemide 40 MG/4 ML VIAL SLOW IVP SCH (11:05)
[2017-10-09 11:41] VITALS: TEMP 97.4
--- NOTE | 2017-10-09 14:22 | DIS ---
DATE OF ADMISSION: 09/27/2017 DATE OF DISCHARGE: 10/09/2017 ADMITTING DIAGNOSES: Right leg pain, history of atrial fibrillation, history of diastolic dysfunctio n, history of chronic kidney disease stage 3, history of diabetes mellitus, history of hypothyroidism , history of hyperlipidemia, and history of hypertension. DISCHARGE DIAGNOSES: Right leg pain, resolved; uremic syndrome; history of diastolic dysfunction; hi story of atrial fibrillation; history of diabetes mellitus; history of hypothyroidism; history of hyp erlipidemia and history of hypertension. HOSPITAL COURSE: This is an 81-year-old female who was admitted for right leg pain and was seen by I nternal Medicine as well as Nephrology. The patient was found to have severe significant uremic synd lucie with uremic concerns for ESRD. After much discussion with family, the patient's palliative care management and Nephrology was decided that the patient did not want to pursue dialysis whatsoever. Creatinine at point in time was 3.31. The patient had had about 200 mL of urine output over the cour se of 48 hours and was in severe significant renal failure. Patient opted when her mental condition was stable to go to hospice care. Hospice arrangements were made. Family is involved in the entire decision making process and agreed with the decision for hospice palliative care. Patient at the [facility] nt of time of discharge was to be discharged to Palliative Services with [facility]. DISPOSITION: Hospice. FOLLOWUP: Follow up with hospice physician. MEDICATIONS: See comfort care medication. ACTIVITY: As tolerated with assistance. DIET: As tolerated. CONDITION: Stable. PROGNOSIS: Poor. Case and plan discussed with the patient and family at length. They understand and agree with this p georgiana.
[2017-10-09 15:53] VITALS: BP 104/63
[2017-10-10] MEDS ORDERED: Ferrous Sulfate 325 MG TAB PO SCH (08:00)
== END 2017-10-09 15:53 | disposition short-term general hospital (02) | DRG 602 ==
LOC: ERS 18:30 → 2SW 21:30 → OBSVTOIN 10-07 12:33 → 2NO 10-07 18:45
PROVIDERS: ADMIT Internal Medicine; ATTEND Internal Medicine
DX: L03.115 Cellulitis of right lower limb (principal); I50.33 Acute on chronic diastolic (congestive) heart failure; J90 Pleural effusion, not elsewhere classified; I13.0 Hypertensive heart and chronic kidney disease with heart failure and stage 1 through stage 4 chronic kidney disease, or unspecified chronic kidney disease; N17.9 Acute kidney failure, unspecified; N39.0 Urinary tract infection, site not specified; E11.21 Type 2 diabetes mellitus with diabetic nephropathy; E11.22 Type 2 diabetes mellitus with diabetic chronic kidney disease; N18.9 Chronic kidney disease, unspecified; D64.9 Anemia, unspecified; I48.91 Unspecified atrial fibrillation; E03.9 Hypothyroidism, unspecified; E78.5 Hyperlipidemia, unspecified
CPT/HCPCS: 36415; 36416; 71045; 76770; 80048; 80053; 81001; 84443; 85007; 85025; 85027; 87040; 87077; 87086; 87149; 87186; 93005; 93306; 96365; 96367; J0696; J1644; J1940; J2543; J3370; J7050; P9047; Q4081